=== PATIENT | male | born 1970 | race Caucasian/White ===

== ENCOUNTER 2018-01-21 09:59 | Emergency (ER) | payer OTHER ==
[~2018-01-21] VITALS: Ht 175.3 cm; Wt 130.0 kg
[~2018-01-21 09:59] MED LIST: AMLO-114 PO; ASPI81TA28 PO; ATOR-26 PO; BENA40TA6 PO; CLOP1TAB15 PO; FEXO1TAB46 PO; FLUT0.15 NAE; HYDR25TA4 PO; LORA-741 PO; NAPR1TAB48 PO; NITR0.4S UT; PANT40TA PO; PARO1TAB27 PO; TPRSR/25 PO
[2018-01-21 10:08] VITALS: TEMP 37.1; Ht 175.3 cm; Wt 130.0 kg
--- NOTE | 2018-01-21 10:43 | DIAGNOSTIC IMAGING REPORT ---
L FOOT MIN 3 VIEWS ROUTINE CLINICAL HISTORY: L foot pain TRAUMA COMPARISON: None. DISCUSSION: No acute fractures are visualized. There is Achilles insertional spur and plantar calcaneal spur. There is mild distal soft tissue swelling. There are minor osteoarthritic changes at the level the first metatarsal phalangeal joint. IMPRESSION: No fractures or dislocations. Electronically signed by: Zelalem Shah M.D. 01/21/2018 10:42 AM Dictated Date/Time: 01/21/2018 10:41 AM
--- NOTE | 2018-01-21 10:51 | DIAGNOSTIC IMAGING REPORT ---
L ANKLE MIN 3 VIEWS ROUTINE CLINICAL HISTORY: 47 years-old Male presenting with D06 - left ankle pain. TECHNIQUE: Frontal, mortise, and lateral views of the left ankle were obtained. COMPARISON: None. FINDINGS: Ankle mortise intact. No acute fracture or malalignment. No advanced degenerative change at the ankle mortise. Enthesophytes noted at the insertion of the Achilles tendon and origin of the plantar fascia. Diffuse soft tissue swelling and subcutaneous edema noted at the ankle. IMPRESSION: No acute osseous injury. Electronically signed by: Joey Rodriguez M.D. 01/21/2018 10:50 AM Dictated Date/Time: 01/21/2018 10:49 AM
--- NOTE | 2018-01-21 11:10 | EMERGENCY ROOM VISIT NOTE ---
History First contact with patient: 10:15 Chief Complaint: ANKLE PAIN Stated Complaint: ANKLE History of Present Illness The patient is a 47 year old male who presents to the Emergency Room via private vehicle with complaints of "ankle pain". The patient states that earlier today around 8 AM he was at work, and he actually tripped and fell injuring his left ankle. He notes pain at the medial aspect of the left distal foot extending to the medial left malleolus region as well as a left medial malleolus. Periodically pain will shoot proximally into the huitron. He rates the overall pain as an 8/10. Review of Systems A complete 6-point Review of Systems was discussed with the patient, with pertinent positives and negatives listed in the History of Present Illness. All remaining Review of Systems questions can be considered negative unless otherwise specified. Past Medical/Surgical History Medical Problems: (1) CAD (coronary artery disease) (2) Chest pain on exertion (3) HTN (hypertension) Surgical Problems: (1) H/O percutaneous transluminal coronary angioplasty (2) Stented coronary artery Family History Heart disease Hypertension Social History Smoking Status: Former Smoker Drug Use: none Marital Status: Housing Status: lives with significant other Occupation Status: employed Current/Historical Medications Scheduled Amlodipine (Norvasc), 10 MG PO QAM Aspirin (Aspirin Ec), 81 MG PO QAM Atorvastatin (Lipitor), 80 MG PO HS Benazepril Hcl (Lotensin), 40 MG PO QAM Clopidogrel (Plavix), 75 MG PO QAM Fluticasone Propionate (Nasal) (Flonase Allergy Relief), 2 SPRAY VIC DAILY Hydrochlorothiazide (Hctz), 25 MG PO QAM Metoprolol Succinate (Metoprolol Succinate ER), 25 MG PO QPM Paroxetine (Paxil), 20 MG PO QAM Scheduled PRN Fexofenadine Hcl (Cassidy), 180 MG PO DAILY PRN for Allergies Lorazepam (Ativan), 0.5 MG PO TID PRN for Anxiety Naproxen (Naprosyn), 250 MG PO Q8 PRN for Pain Nitroglycerin (Nitrostat), 0.4 MG UT UD PRN for Chest Pain Physical Exam Vital Signs Date Time Temp Pulse Resp B/P (MAP) Pulse Ox O2 Delivery O2 Flow Rate FiO2 01/21/18 11:09 64 16 167/107 96 Room Air 01/21/18 10:08 37.1 55 18 174/95 95 Room Air Physical Exam VITAL SIGNS - Vital signs and nursing notes were reviewed. Stable. GENERAL -47-year-old male appearing his Stated age who is in no acute distress. Communicates well with provider and answers questions appropriately. SKIN - Without rashes.there is erythema and edema overlying the medial as well as lateral malleolar regions of the left ankle. HEAD - NC/AT. EYES - Sclera anicteric. EXTREMITIES - No clubbing or peripheral cyanosis. No pretibial edema present. L ankle tenderness to palpation over the medial and lateral malleolus region and medial distal foot. No open fx evidence. +5/5 strength noted in UE/LE bilaterally. Neurovascularly intact in the L ankle. Medical Decision & Procedures ER Provider Diagnostic Interpretation: L ANKLE MIN 3 VIEWS ROUTINE CLINICAL HISTORY: 47 years-old Male presenting with D06 - left ankle pain. TECHNIQUE: Frontal, mortise, and lateral views of the left ankle were obtained. COMPARISON: None. FINDINGS: Ankle mortise intact. No acute fracture or malalignment. No advanced degenerative change at the ankle mortise. Enthesophytes noted at the insertion of the Achilles tendon and origin of the plantar fascia. Diffuse soft tissue swelling and subcutaneous edema noted at the ankle. IMPRESSION: No acute osseous injury. Electronically signed by: Joey Rodriguez M.D. 01/21/2018 10:50 AM Dictated Date/Time: 01/21/2018 10:49 AM L FOOT MIN 3 VIEWS ROUTINE CLINICAL HISTORY: L foot pain TRAUMA COMPARISON: None. DISCUSSION: No acute fractures are visualized. There is Achilles insertional spur and plantar calcaneal spur. There is mild distal soft tissue swelling. There are minor osteoarthritic changes at the level the first metatarsal phalangeal joint. IMPRESSION: No fractures or dislocations. Electronically signed by: Zelalem Shah M.D. 01/21/2018 10:42 AM Dictated Date/Time: 01/21/2018 10:41 AM Medical Decision Patient was seen and evaluated as above. He presents to us today from work with a left lower extremity injury. He is accompanied by female. Review was performed of nursing notes and vital signs. After obtaining a thorough history and physical examination the above work up was performed. X-rays were obtained of the foot and ankle. Negative for fracture. Results as above. He likely has a sprain. He was educated upon the risk of occult fracture. He is to ice, elevate as well as have a splint on the left ankle. He was given a gel ankle splint and is to be nonweightbearing with crutches. If this persists he is to follow with orthopedics or return with worsening. The patient was educated upon management, had questions answered prior to discharge, and was discharged home in good condition. He notes that he had ibuprofen prior to coming here with some relief and states that he will use similar at home for pain. I do believe this is reasonable. In the evaluation and treatment of this patient, the following differential diagnoses were considered: Ankle Fracture, Ankle Sprain, Distal Fibula Fracture , Distal Tibia Fracture, Foot Fracture, [place]ison[place]uve Fracture. Impression Primary Impression: Left ankle pain Departure Information Dispostion Home / Self-Care Condition GOOD Referrals Camille Sherwood C.R.N.P. (PCP) Chuck Holden D.O. Patient Instructions [facility] Additional Instructions You have been treated in the Emergency Department for a L Ankle Pain. For pain control, you can use the following [id number] medicines: - Regular strength (325mg/tab) Tylenol (acetaminophen) 2 tabs every 4-6 hours as needed. Do not exceed 12 tablets in a 24 hour period. Avoid taking more than 3 grams (3000 mg) of Tylenol per day. This includes any other sources of acetaminophen you may take on a regular basis. - Regular strength (200 mg/tab) Advil (ibuprofen) 1-2 tabs every 4-6 hours as needed. Do not exceed a dose of 3200 mg per day. If this is a recent injury (<24 hrs), ice can be applied to the area of pain for the first 3 days to help decrease pain and inflammation. You have been provided the number for an Orthopaedic Surgeon. You should call this number as soon as possible to establish a follow-up visit from today's Emergency Department visit. Keep the ankle brace/splint in place until cleared by Orthopedics. Use the crutches you have been provided to keep ALL weight off of the ankle until weight bearing is tolerable. Return to the Emergency Department if your current symptoms worsen despite treatment course outlined above, or if you develop any of the following symptoms : intractable pain despite aforementioned treatment course or new onset of numbness or tingling of the foot.
[2018-01-21 11:24] VITALS: BP 153/107; PULSE 65; O2SAT 96
== END 2018-01-21 11:26 | disposition home or self-care (01) ==
LOC: C.EDB 10:01 → C.EDD 11:26
DX: M25.572 Pain in left ankle and joints of left foot (principal); I25.10 Atherosclerotic heart disease of native coronary artery without angina pectoris; I10 Essential (primary) hypertension; Z82.49 Family history of ischemic heart disease and other diseases of the circulatory system; Z87.891 Personal history of nicotine dependence; Z79.82 Long term (current) use of aspirin

== ENCOUNTER 2024-01-16 07:04 | Inpatient (IN) ==
[2024-01-16] MEDS: OPTIRAY 320 125ml IV ONE (07:18)
--- NOTE | 2024-01-16 07:20 | Emergency Department Note ---
Impression & Plan AMS (altered mental status), Stroke-like symptoms, Sepsis, Rhabdomyolysis ED Provider Note Provider: Heriberto Cee MD DATE OF SERVICE: 01/16/2024 CHIEF COMPLAINT: Unresponsive HISTORY OF PRESENT ILLNESS: Patient is a 53-year-old gentleman past medical history of hypertension and CAD with stents presenting here via ambulance today after being found unresponsive on the floor by . Patient evidently according to EMS was last seen around 730 last night. woke and found him on the floor this morning. Would not talk and not really moving and EMS was called. Made a stroke alert prior to arrival. Patient does not follow commands and is nonverbal upon arrival. Eyes open bit of a right gaze preference. Occasionally moving right arm with no movement of left arm or leg appreciable or significantly in the right leg. Patient I will provide additional history. reports he did have some dental work recently and did hold his Plavix he is unsure if he is restarted it. He is normally on aspirin and Plavix. Recently treated and finished course of several antibiotics for sinus and dental infection. reports that maybe he reported headache earlier but no other verbal information. She states he found him some sort of rolled next to the couch is unclear if he fell or was trying off the couch and ended up there with his leg underneath of him. PAST MEDICAL HISTORY: As noted above MEDICATIONS: Reviewed home medications and discussion with SOCIAL HISTORY: , former smoker PHYSICAL EXAM: GENERAL: alert in no acute distress on stretcher but nonverbal Head: normocephalic and atraumatic EYES: No injection, discharge or icterus. PERRL with a right gaze deviation noted NECK: Trachea midline. Supple with no neck stiffness appreciable. ENT: Mucous membranes pink and moist LUNGS: Airway patent. No retractions. Breath sounds clear HEART: Regular rate and rhythm. No chest wall tenderness ABDOMEN: Soft and non-tender, without guarding or rebound. SKIN: Acyanotic, warm, dry, without rashes EXTREMITIES: Without swelling, tenderness or deformity NEUROLOGICAL: No obvious facial droop. Nonverbal. Some movement to the right arm and some tone to the right leg with flaccidity to the left leg and arm. EK bpm first-degree heart block without PVC CBC. Some slight baseline artifact without acute ST segment elevation notable with possibly some lateral T wave inversion and ST flattening. QTc 408. CONTINUOUS CARDIAC MONITORING: was ordered and showed a heart rate of 70s to 80s bpm in first-degree heart block later with PVCs EKG 2: 81 bpm sinus rhythm what appears to be bigeminy without clear acute ST segment elevation or depression on normal beats with a QTc of 490. Patient's laboratory studies and imaging reviewed. Differential includes Infection, dehydration, metabolic abnormality, hypo/hyperglycemia, electrolyte disturbance, anemia, hypoxia, cardiac sources, intracerebral event, toxicologic, neurologic, as well as other pathologies. IMPRESSION/MEDICAL DECISION MAKING: Immediately taken to CT for evaluation as a stroke alert given neurological deficits. Left side very flaccid without movement. Right gaze noted. Appears to be protecting his airway at this time. CT noncontrast as well as CT angiograms completed to look for signs of intracranial bleed or large vessel occlusion. High concern for possible CVA. Last seen well confirmed with at 730 last night thus outside the time window for TNK. Not hypoglycemic. Radiology report reviewed (as well as phone conversation with the reading radiologist) and no reported intracranial hemorrhage or findings of acute vascular abnormality noted by the radiologist. Blood work returns with significant leukocytosis today of 28.7. Much increased from previous value 10 days ago of 12. No anemia is noted. No fevers reported and afebrile here and recently on antibiotics but no steroids. Possibly infectious but does not appear frankly meningitic at this time. Will cover empirically with antibiotics at this point; discussed with pharmacy and will give broad-spectrum cefepime at this point believing low risk for cross-reactivity with his amoxicillin allergy. Updated and she states she is never seen any reaction with the amoxicillin with him before but he said he had a rash to her with it. Procalcitonin and lactate as well as blood cultures again will be sent. Given some gentle IV fluid hydration. Chest x-ray per radiology questions little pulmonary vascular congestion with bibasilar opacities possibly atelectasis or consolidation. Again receiving antibiotic coverage. Patient nonverbal does groan and expressed some discomfort with movement of the right arm with Villeda placement. Chemistries returned with borderline hyponatremia and hypokalemia. Anion gap notable with normal renal function. Troponin normal. No transaminitis. Rhabdomyolysis with elevated CK as noted again receiving some gentle IV fluids here. Lactate does return elevated but not tachycardic or hypotensive. Given the findings of the chest x-ray possible pulmonary vascular congestion wish to avoid large fluid boluses but given a liter of IV fluid hydration here initially. Urinalysis not clearly indicative of infection. Procalcitonin not severely elevated. Again cover broadly with cefepime for antibiotic coverage. Will bring into the hospital for further evaluation. Given some IV Tylenol for his fever. Discussed with the hospitalist team and will cover with vancomycin and Flagyl for any additional gram-positive and anaerobic coverage given the unclear source. Becomes increasingly hypertensive here and given some labetalol for this. Patient does seem somewhat anxious and agitated but try to avoid significantly sedating medications. Hospitalist evaluating and ordered ABG which does not show acidosis. During hospitalist evaluation patient mental status however continues to decline and becoming more encephalopathic and concerns for airway as he is now gargling having partial obstruction. Not desatting. Discussed with hospitalist as well as family. Intubated here for airway protection given concern for possible aspiration. Started on propofol drip for sedation. Intubation completed without acute complication. Difficulty obtaining blood pressures both before and after but manuals are quite high. Hospitalist is contacted the ICU. Plan for patient to obtain MRI and go to the ICU. ICU has been made aware by the hospitalist team. DIAGNOSIS: Strokelike symptoms, rhabdomyolysis, sepsis, hypertension, AMS DISPOSITION: Hospitalist will evaluate updated. Critical Care I have personally spent 75 minutes of critical care time in the direct management of this patient. This includes bedside care, interpretation of diagnostic studies, and testing, discussion with consultants, patient, and family members, and other required patient management activities. These 75 minutes is in excess of all separately billable procedures. ED Intubation Indication airway protection, encephalopathy The patient was on 100% oxygen prior to the procedure. Suction, airway equipment, RSI drugs, respiratory equipment, and appropriate personnel were prepared prior to the initiation of the procedure. A time out was taken. Induction was performed with 20 mg of etomidate and 150 mg of succinylcholine. After observing the clinical benefit of the medications, the airway was easily visualized utilizing a S3 glide scope. A 7.5 size ETT tube was placed atraumatically to 24 cm using standard technique. The cuff inflated without signs of malfunction. There were bilateral breath sounds, positive colormetric change, no gastric sounds, a good capnography waveform, and post procedure pulse oximetry was 97%. Post intubation sedation started with propofol drip. There were no complications. Past Med/Surg History Medical History Antibiotic-induced myalgia Cough Fever Morbid obesity CAD (coronary artery disease) Anxiety Hypertension Hyperlipidemia Anxiety reaction Surgical History History of tympanostomy tube placement (~04/2019) History of ankle surgery History of cardiac cath (~07/2016) History of esophagogastroduodenoscopy (EGD) (~08/2016) History of colonoscopy History of splenectomy (~1988) History of tooth extraction H/O percutaneous transluminal coronary angioplasty Family History Mother Family history of diabetes mellitus Brother Coronary heart disease Father Hx of CABG Unknown Cardiac disorder Other No family history of bleeding disorder Social History (Updated 01/01/24 @ 11:28 by JHONATHAN Chino) Smoking Status: Never smoker Second Hand Exposure: No; Do You Dip or Chew Tobacco: No; Hx Alcohol Use: No Hx Substance Use: No Preferred Language: Icelandic Communication Ability: Effective O And M Supervisor Required: No Beliefs That Will Affect Care: None Current Living Situation: Family current occupational status: employed Feels Safe at Home: Yes Assistive Devices: None Allergies Allergies Allergy/AdvReac Type Severity Reaction Status Date / Time amoxicillin Allergy Intermediate rash AND Verified 01/06/24 10:04 SOB doxycycline Allergy Unknown Unknown Verified 01/06/24 10:04 Home Meds Home Medications Medication Instructions Recorded Confirmed aspirin 81 mg tablet,delayed 81 mg PO QAM 04/06/19 01/16/24 release fexofenadine 180 mg tablet 180 mg PO QAM 04/06/19 01/16/24 amlodipine 10 mg tablet 10 mg PO QAM 01/16/24 01/16/24 benazepril 40 mg tablet 0 mg PO QAM 01/16/24 01/16/24 chlorhexidine gluconate 0.12 % 1 ea PO AMPM 01/16/24 01/16/24 mouthwash ibuprofen 800 mg tablet 800 mg PO Q6H 01/16/24 01/16/24 paroxetine HCl 40 mg tablet 0 mg PO QAM 01/16/24 01/16/24 rosuvastatin 40 mg tablet 0 mg PO DAILY 01/16/24 01/16/24 tramadol 50 mg tablet 50 - 100 mg PO Q6H PRN Pain 01/16/24 01/16/24 Previous Rx's Medication Instructions Recorded clopidogrel 75 mg tablet 75 mg PO DAILY #90 tabs 03/31/23 hydrochlorothiazide 25 mg tablet See Rx Instructions .Route 06/25/23 .COMPLEX #90 tabs nitroglycerin 0.4 mg sublingual 0.4 mg sublingual Q5M PRN Chest 08/19/23 tablet Pain #25 tabs fluticasone propionate 50 2 spray intranasal DAILY #9.9 grams 09/18/23 mcg/actuation nasal spray,suspension (Flonase Allergy Relief) bupropion HCl 150 mg 24 hr tablet, 150 mg PO QAM #90 tabs 11/17/23 extended release carvedilol 12.5 mg tablet 12.5 mg PO BID #180 tabs 01/06/24 Results & Data (ED) Vital Signs Vital Signs - 24 hr 01/16/24 07:16 01/16/24 07:38 01/16/24 07:40 Temperature Temperature Source Pulse Rate 78 83 84 Pulse Rate [Apical] Pulse Rate from SpO2 Sensor 83 83 Respiratory Rate 25 H 32 H 26 H Respiratory Effort / Characteristics Non-Labored Spontaneous Respiratory Depth Normal Blood Pressure 182/97 H Blood Pressure [Right Arm] Blood Pressure Mean 125 Blood Pressure Mean [Right Arm] Blood Pressure Position Lying Blood Pressure Position [Right Arm] Pulse Oximetry 97 98 97 Oxygen Delivery Method Room Air Sepsis Recent Fever Within 48 Hours No Sepsis New/Unexplained Change in Mental Status No Sepsis Action Taken by Nursing No Action Required 01/16/24 07:40 01/16/24 07:45 01/16/24 07:45 Temperature Temperature Source Pulse Rate 83 Pulse Rate [Apical] Pulse Rate from SpO2 Sensor 83 Respiratory Rate 25 H Respiratory Effort / Characteristics Respiratory Depth Blood Pressure 180/99 H 183/108 H Blood Pressure [Right Arm] Blood Pressure Mean 144 145 Blood Pressure Mean [Right Arm] Blood Pressure Position Blood Pressure Position [Right Arm] Pulse Oximetry 98 Oxygen Delivery Method Room Air Sepsis Recent Fever Within 48 Hours Sepsis New/Unexplained Change in Mental Status Sepsis Action Taken by Nursing 01/16/24 07:50 01/16/24 07:50 01/16/24 07:55 Temperature 36.7 C Temperature Source Pulse Rate 85 85 Pulse Rate [Apical] Pulse Rate from SpO2 Sensor 84 84 Respiratory Rate 27 H 29 H Respiratory Effort / Characteristics Respiratory Depth Blood Pressure 179/105 H Blood Pressure [Right Arm] Blood Pressure Mean 136 Blood Pressure Mean [Right Arm] Blood Pressure Position Blood Pressure Position [Right Arm] Pulse Oximetry 99 99 Oxygen Delivery Method Room Air Sepsis Recent Fever Within 48 Hours Sepsis New/Unexplained Change in Mental Status Sepsis Action Taken by Nursing 01/16/24 07:55 01/16/24 07:57 01/16/24 08:00 Temperature 37.2 C 37.4 C Temperature Source Villeda Cath ( Temp Sensing) Pulse Rate 83 Pulse Rate [Apical] Pulse Rate from SpO2 Sensor 83 Respiratory Rate 29 H Respiratory Effort / Characteristics Respiratory Depth Blood Pressure 182/105 H Blood Pressure [Right Arm] Blood Pressure Mean 127 Blood Pressure Mean [Right Arm] Blood Pressure Position Blood Pressure Position [Right Arm] Pulse Oximetry 97 Oxygen Delivery Method Sepsis Recent Fever Within 48 Hours Sepsis New/Unexplained Change in Mental Status Sepsis Action Taken by Nursing 01/16/24 08:10 01/16/24 08:15 01/16/24 08:19 Temperature 37.9 C H 37.9 C H Temperature Source Pulse Rate 80 88 82 Pulse Rate [Apical] Pulse Rate from SpO2 Sensor 80 81 Respiratory Rate 29 H 29 H Respiratory Effort / Characteristics Respiratory Depth Blood Pressure Blood Pressure [Right Arm] Blood Pressure Mean Blood Pressure Mean [Right Arm] Blood Pressure Position Blood Pressure Position [Right Arm] Pulse Oximetry 99 100 Oxygen Delivery Method Room Air Sepsis Recent Fever Within 48 Hours Sepsis New/Unexplained Change in Mental Status Sepsis Action Taken by Nursing 01/16/24 08:22 01/16/24 08:22 01/16/24 08:30 Temperature 37.9 C H 38.0 C H Temperature Source Pulse Rate 77 81 Pulse Rate [Apical] Pulse Rate from SpO2 Sensor 77 80 Respiratory Rate 25 H 36 H Respiratory Effort / Characteristics Respiratory Depth Blood Pressure 268/120 H Blood Pressure [Right Arm] Blood Pressure Mean 190 Blood Pressure Mean [Right Arm] Blood Pressure Position Blood Pressure Position [Right Arm] Pulse Oximetry 98 99 Oxygen Delivery Method Sepsis Recent Fever Within 48 Hours Sepsis New/Unexplained Change in Mental Status Sepsis Action Taken by Nursing 01/16/24 08:45 01/16/24 08:48 01/16/24 08:57 Temperature 38.0 C H 38.1 C H Temperature Source Pulse Rate 88 90 Pulse Rate [Apical] Pulse Rate from SpO2 Sensor Respiratory Rate 29 H 34 H Respiratory Effort / Characteristics Respiratory Depth Blood Pressure Blood Pressure [Right Arm] Blood Pressure Mean Blood Pressure Mean [Right Arm] Blood Pressure Position Blood Pressure Position [Right Arm] Pulse Oximetry 98 97 99 Oxygen Delivery Method Room Air Sepsis Recent Fever Within 48 Hours Sepsis New/Unexplained Change in Mental Status Sepsis Action Taken by Nursing 01/16/24 08:57 01/16/24 09:00 01/16/24 09:06 Temperature 38.1 C H Temperature Source Pulse Rate 83 90 Pulse Rate [Apical] Pulse Rate from SpO2 Sensor Respiratory Rate 14 Respiratory Effort / Characteristics Respiratory Depth Blood Pressure 234/140 H Blood Pressure [Right Arm] Blood Pressure Mean 183 Blood Pressure Mean [Right Arm] Blood Pressure Position Blood Pressure Position [Right Arm] Pulse Oximetry 98 Oxygen Delivery Method Sepsis Recent Fever Within 48 Hours Sepsis New/Unexplained Change in Mental Status Sepsis Action Taken by Nursing 01/16/24 09:15 01/16/24 09:30 01/16/24 09:32 Temperature 38.1 C H 38.1 C H Temperature Source Pulse Rate 71 73 Pulse Rate [Apical] 76 Pulse Rate from SpO2 Sensor 74 Respiratory Rate 15 17 16 Respiratory Effort / Characteristics Non-Labored Spontaneous Respiratory Depth Normal Blood Pressure Blood Pressure [Right Arm] 212/130 H Blood Pressure Mean Blood Pressure Mean [Right Arm] 157 Blood Pressure Position Blood Pressure Position [Right Arm] Lying Pulse Oximetry 100 99 99 Oxygen Delivery Method Room Air Sepsis Recent Fever Within 48 Hours Sepsis New/Unexplained Change in Mental Status Sepsis Action Taken by Nursing 01/16/24 09:45 01/16/24 09:49 01/16/24 10:00 Temperature 37.8 C H Temperature Source Pulse Rate 86 Pulse Rate [Apical] 82 Pulse Rate from SpO2 Sensor 86 Respiratory Rate 15 15 Respiratory Effort / Characteristics Non-Labored Spontaneous Respiratory Depth Normal Blood Pressure Blood Pressure [Right Arm] 212/132 H 212/126 H Blood Pressure Mean Blood Pressure Mean [Right Arm] 158 154 Blood Pressure Position Blood Pressure Position [Right Arm] Lying Lying Pulse Oximetry 99 99 Oxygen Delivery Method Room Air Sepsis Recent Fever Within 48 Hours Sepsis New/Unexplained Change in Mental Status Sepsis Action Taken by Nursing 01/16/24 10:00 Temperature 37.7 C H Temperature Source Pulse Rate 93 H Pulse Rate [Apical] Pulse Rate from SpO2 Sensor 61 Respiratory Rate 16 Respiratory Effort / Characteristics Respiratory Depth Blood Pressure Blood Pressure [Right Arm] Blood Pressure Mean Blood Pressure Mean [Right Arm] Blood Pressure Position Blood Pressure Position [Right Arm] Pulse Oximetry 99 Oxygen Delivery Method Room Air Sepsis Recent Fever Within 48 Hours Sepsis New/Unexplained Change in Mental Status Sepsis Action Taken by Nursing Laboratory Data 01/16/24 07:28 01/16/24 07:28 Lab Results 01/16/24 01/16/24 01/16/24 Range/Units 07:18 07:28 07:29 WBC 28.73 H (4.8-10.8) K/ul RBC 4.85 (4.70-6.10) M/uL Hgb 14.5 (14.0-18.0) g/dl Hct 41.5 L (42.0-52.0) % MCV 85.6 (80.0-100.0) fL MCH 29.9 (25.0-34.0) pg MCHC 34.9 (32.0-36.0) g/dL RDW Std Deviation 44.7 (36.4-46.3) fL RDW Coeff of Rolo 14.3 (11.5-14.5) % Plt Count 436 H (130-400) K/uL MPV 11.0 (9.4-12.4) fL Immature Gran % (Auto) 1.3 % Neut % (Auto) 91.9 % Lymph % (Auto) 2.1 % Webster % (Auto) 4.3 % Eos % (Auto) 0.2 % Baso % (Auto) 0.2 % Neut # (Auto) 26.43 H (1.40-6.50) K/uL Lymph # (Auto) 0.60 L (1.20-3.40) K/uL Webster # (Auto) 1.23 H (0.11-0.59) K/uL Eos # (Auto) 0.05 (0.00-0.50) K/uL Baso # (Auto) 0.05 (0.00-0.20) K/uL Immature Gran # (Auto) 0.37 H (0.01-0.20) K/uL RBC Morphology Unremarkable ESR 35 H (0-20) mm/hr PT 12.7 H (9.0-12.0) Seconds INR 1.2 H (0.9-1.1) APTT 25 (21-31) Seconds PTT Ratio 0.9 ABG pH (7.35-7.45) ABG pCO2 (35-46) mmHg ABG pO2 (80-95) mmHg ABG HCO3 (19-24) mmol/L ABG O2 Saturation (90-95) % ABG Base Excess (-9-1.8) mEq/L Hugo Test (Pos) Oxygen Given Sodium 134 L (136-145) mmol/L Potassium 3.4 L (3.5-5.1) mmol/L Chloride 99 (98-107) mmol/L Carbon Dioxide 18 L (21-32) mmol/L Anion Gap 17 H (3-11) BUN 29 H (6-23) mg/dl Creatinine 0.88 (0.6-1.4) mg/dl Est Cr Clr Drug Dosing 144.0 ml/min Est GFR ( Amer) 112.9 ml/min Est GFR (Non-Af Amer) 97.4 ml/min BUN/Creatinine Ratio 33.0 H (10-20) Glucose 221 H (70-99(Fasting)) mg/dl POC Glucose 227 H (70-99) mg/dl Lactate (0.4-2.0) mmol/L Calcium 8.3 L (8.6-10.3) mg/dl Magnesium 1.6 L (1.7-2.4) mg/dl Total Bilirubin 1.0 (0.2-1.0) mg/dl AST 29 (13-39) U/L ALT 31 (7-52) U/L Alkaline Phosphatase 69 (34-104) U/L Total Creatine Kinase 1556 H (30-223) U/L Troponin I High Sens 4.9 (0-20) pg/ml Total Protein 7.5 (6.0-8.3) gm/dl Albumin 3.6 (3.4-5.0) gm/dl Globulin 3.9 (2.5-4.0) gm/dl Albumin/Globulin Ratio 0.9 (0.9-2) Procalcitonin 0.20 (0-0.5) ng/ml Urine Color Urine Appearance (Clear) Urine pH (4.5-7.5) Ur Specific [place] (1.000-1.030) Urine Protein (Negative) Urine Glucose (UA) (Negative) Urine Ketones (Negative) Urine Blood (Negative) Urine Nitrite (Negative) Urine Bilirubin (Negative) Urine Urobilinogen (Negative) Ur Leukocyte Esterase (Negative) Urine WBC (Auto) (0-5) /hpf Urine RBC (Auto) (0-4) /hpf U Hyaline Cast (Auto) (0-5) /lpf U Epithel Cells (Auto) (0-5) /lpf Urine Bacteria (Auto) (Negative) Ur Renal Epithelial Cell Urine Mucus (None Prsent) Urine Sperm (None Prsent) Urine Osmolality (500-800) mOsm/kg Nasal Screen MRSA (PCR) (Negative) Urine Opiates Screen (Neg) Ur Methadone, Qual (Neg) Urine Barbiturates (Neg) Ur Phencyclidine (PCP) (Neg) U Amphetamin/Meth Scrn (Neg) MDMA (Ecstasy) Screen (Neg) U Benzodiazepines Scrn (Neg) Ur Cocaine Metabolite (Neg) U Marijuana (THC) Screen (Neg) Adenovirus (PCR) (NotDetected) B. pertussis DNA (PCR) (NotDetected) B.parapertussis DNA PCR (NotDetected) C. pneumoniae DNA (PCR) (NotDetected) Coronavirus OC43 (PCR) (NotDetected) Coronavirus HKU1 (PCR) (NotDetected) Coronavirus 229E (PCR) (NotDetected) SARS-CoV-2 (PCR) (NotDetected) Coronavirus NL63 (PCR) (NotDetected) Human Metapneumovir PCR (NotDetected) Influenza Type A (PCR) (NotDetected) Influenza Type B (PCR) (NotDetected) M. pneumoniae (PCR) (NotDetected) Parainfluenza 1 (PCR) (NotDetected) Parainfluenza 2 (PCR) (NotDetected) Parainfluenza 3 (PCR) (NotDetected) Parainfluenza 4 (PCR) (NotDetected) RSV (PCR) (NotDetected) Entero/Rhino (PCR) (NotDetected) Blood Type AB Positive Antibody Screen NEGATIVE 01/16/24 01/16/24 01/16/24 Range/Units 07:59 08:26 09:27 WBC (4.8-10.8) K/ul RBC (4.70-6.10) M/uL Hgb (14.0-18.0) g/dl Hct (42.0-52.0) % MCV (80.0-100.0) fL MCH (25.0-34.0) pg MCHC (32.0-36.0) g/dL RDW Std Deviation (36.4-46.3) fL RDW Coeff of Rolo (11.5-14.5) % Plt Count (130-400) K/uL MPV (9.4-12.4) fL Immature Gran % (Auto) % Neut % (Auto) % Lymph % (Auto) % Webster % (Auto) % Eos % (Auto) % Baso % (Auto) % Neut # (Auto) (1.40-6.50) K/uL Lymph # (Auto) (1.20-3.40) K/uL Webster # (Auto) (0.11-0.59) K/uL Eos # (Auto) (0.00-0.50) K/uL Baso # (Auto) (0.00-0.20) K/uL Immature Gran # (Auto) (0.01-0.20) K/uL RBC Morphology ESR (0-20) mm/hr PT (9.0-12.0) Seconds INR (0.9-1.1) APTT (21-31) Seconds PTT Ratio ABG pH (7.35-7.45) ABG pCO2 (35-46) mmHg ABG pO2 (80-95) mmHg ABG HCO3 (19-24) mmol/L ABG O2 Saturation (90-95) % ABG Base Excess (-9-1.8) mEq/L Hugo Test (Pos) Oxygen Given Sodium (136-145) mmol/L Potassium (3.5-5.1) mmol/L Chloride (98-107) mmol/L Carbon Dioxide (21-32) mmol/L Anion Gap (3-11) BUN (6-23) mg/dl Creatinine (0.6-1.4) mg/dl Est Cr Clr Drug Dosing ml/min Est GFR ( Amer) ml/min Est GFR (Non-Af Amer) ml/min BUN/Creatinine Ratio (10-20) Glucose (70-99(Fasting)) mg/dl POC Glucose (70-99) mg/dl Lactate 5.3 H* (0.4-2.0) mmol/L Calcium (8.6-10.3) mg/dl Magnesium (1.7-2.4) mg/dl Total Bilirubin (0.2-1.0) mg/dl AST (13-39) U/L ALT (7-52) U/L Alkaline Phosphatase (34-104) U/L Total Creatine Kinase (30-223) U/L Troponin I High Sens (0-20) pg/ml Total Protein (6.0-8.3) gm/dl Albumin (3.4-5.0) gm/dl Globulin (2.5-4.0) gm/dl Albumin/Globulin Ratio (0.9-2) Procalcitonin (0-0.5) ng/ml Urine Color Yellow Urine Appearance Clear (Clear) Urine pH 6.0 (4.5-7.5) Ur Specific [place] 1.033 H (1.000-1.030) Urine Protein 1+ H (Negative) Urine Glucose (UA) Negative (Negative) Urine Ketones 2+ H (Negative) Urine Blood 3+ H (Negative) Urine Nitrite Negative (Negative) Urine Bilirubin Negative (Negative) Urine Urobilinogen Negative (Negative) Ur Leukocyte Esterase Negative (Negative) Urine WBC (Auto) 1-5 (0-5) /hpf Urine RBC (Auto) 5-10 H (0-4) /hpf U Hyaline Cast (Auto) 1-5 (0-5) /lpf U Epithel Cells (Auto) 5-10 H (0-5) /lpf Urine Bacteria (Auto) 1+ H (Negative) Ur Renal Epithelial Cell Not Reportable Urine Mucus Present A (None Prsent) Urine Sperm Present A (None Prsent) Urine Osmolality 831 H (500-800) mOsm/kg Nasal Screen MRSA (PCR) Negative (Negative) Urine Opiates Screen Neg (Neg) Ur Methadone, Qual Neg (Neg) Urine Barbiturates Neg (Neg) Ur Phencyclidine (PCP) Neg (Neg) U Amphetamin/Meth Scrn Neg (Neg) MDMA (Ecstasy) Screen Pos H (Neg) U Benzodiazepines Scrn Neg (Neg) Ur Cocaine Metabolite Neg (Neg) U Marijuana (THC) Screen Neg (Neg) Adenovirus (PCR) Not Detected (NotDetected) B. pertussis DNA (PCR) Not Detected (NotDetected) B.parapertussis DNA PCR Not Detected (NotDetected) C. pneumoniae DNA (PCR) Not Detected (NotDetected) Coronavirus OC43 (PCR) Not Detected (NotDetected) Coronavirus HKU1 (PCR) Not Detected (NotDetected) Coronavirus 229E (PCR) Not Detected (NotDetected) SARS-CoV-2 (PCR) Not Detected (NotDetected) Coronavirus NL63 (PCR) Not Detected (NotDetected) Human Metapneumovir PCR Not Detected (NotDetected) Influenza Type A (PCR) Not Detected (NotDetected) Influenza Type B (PCR) Not Detected (NotDetected) M. pneumoniae (PCR) Not Detected (NotDetected) Parainfluenza 1 (PCR) Not Detected (NotDetected) Parainfluenza 2 (PCR) Not Detected (NotDetected) Parainfluenza 3 (PCR) Not Detected (NotDetected) Parainfluenza 4 (PCR) Not Detected (NotDetected) RSV (PCR) Not Detected (NotDetected) Entero/Rhino (PCR) Not Detected (NotDetected) Blood Type Antibody Screen 01/16/24 Range/Units 09:28 WBC (4.8-10.8) K/ul RBC (4.70-6.10) M/uL Hgb (14.0-18.0) g/dl Hct (42.0-52.0) % MCV (80.0-100.0) fL MCH (25.0-34.0) pg MCHC (32.0-36.0) g/dL RDW Std Deviation (36.4-46.3) fL RDW Coeff of Rolo (11.5-14.5) % Plt Count (130-400) K/uL MPV (9.4-12.4) fL Immature Gran % (Auto) % Neut % (Auto) % Lymph % (Auto) % Webster % (Auto) % Eos % (Auto) % Baso % (Auto) % Neut # (Auto) (1.40-6.50) K/uL Lymph # (Auto) (1.20-3.40) K/uL Webster # (Auto) (0.11-0.59) K/uL Eos # (Auto) (0.00-0.50) K/uL Baso # (Auto) (0.00-0.20) K/uL Immature Gran # (Auto) (0.01-0.20) K/uL RBC Morphology ESR (0-20) mm/hr PT (9.0-12.0) Seconds INR (0.9-1.1) APTT (21-31) Seconds PTT Ratio ABG pH 7.54 H* (7.35-7.45) ABG pCO2 20 L (35-46) mmHg ABG pO2 103 H (80-95) mmHg ABG HCO3 17 L (19-24) mmol/L ABG O2 Saturation 99.0 H (90-95) % ABG Base Excess -3.2 (-9-1.8) mEq/L Hugo Test Pos (Pos) Oxygen Given ROOM AIR Sodium (136-145) mmol/L Potassium (3.5-5.1) mmol/L Chloride (98-107) mmol/L Carbon Dioxide (21-32) mmol/L Anion Gap (3-11) BUN (6-23) mg/dl Creatinine (0.6-1.4) mg/dl Est Cr Clr Drug Dosing ml/min Est GFR ( Amer) ml/min Est GFR (Non-Af Amer) ml/min BUN/Creatinine Ratio (10-20) Glucose (70-99(Fasting)) mg/dl POC Glucose (70-99) mg/dl Lactate (0.4-2.0) mmol/L Calcium (8.6-10.3) mg/dl Magnesium (1.7-2.4) mg/dl Total Bilirubin (0.2-1.0) mg/dl AST (13-39) U/L ALT (7-52) U/L Alkaline Phosphatase (34-104) U/L Total Creatine Kinase (30-223) U/L Troponin I High Sens (0-20) pg/ml Total Protein (6.0-8.3) gm/dl Albumin (3.4-5.0) gm/dl Globulin (2.5-4.0) gm/dl Albumin/Globulin Ratio (0.9-2) Procalcitonin (0-0.5) ng/ml Urine Color Urine Appearance (Clear) Urine pH (4.5-7.5) Ur Specific [place] (1.000-1.030) Urine Protein (Negative) Urine Glucose (UA) (Negative) Urine Ketones (Negative) Urine Blood (Negative) Urine Nitrite (Negative) Urine Bilirubin (Negative) Urine Urobilinogen (Negative) Ur Leukocyte Esterase (Negative) Urine WBC (Auto) (0-5) /hpf Urine RBC (Auto) (0-4) /hpf U Hyaline Cast (Auto) (0-5) /lpf U Epithel Cells (Auto) (0-5) /lpf Urine Bacteria (Auto) (Negative) Ur Renal Epithelial Cell Urine Mucus (None Prsent) Urine Sperm (None Prsent) Urine Osmolality (500-800) mOsm/kg Nasal Screen MRSA (PCR) (Negative) Urine Opiates Screen (Neg) Ur Methadone, Qual (Neg) Urine Barbiturates (Neg) Ur Phencyclidine (PCP) (Neg) U Amphetamin/Meth Scrn (Neg) MDMA (Ecstasy) Screen (Neg) U Benzodiazepines Scrn (Neg) Ur Cocaine Metabolite (Neg) U Marijuana (THC) Screen (Neg) Adenovirus (PCR) (NotDetected) B. pertussis DNA (PCR) (NotDetected) B.parapertussis DNA PCR (NotDetected) C. pneumoniae DNA (PCR) (NotDetected) Coronavirus OC43 (PCR) (NotDetected) Coronavirus HKU1 (PCR) (NotDetected) Coronavirus 229E (PCR) (NotDetected) SARS-CoV-2 (PCR) (NotDetected) Coronavirus NL63 (PCR) (NotDetected) Human Metapneumovir PCR (NotDetected) Influenza Type A (PCR) (NotDetected) Influenza Type B (PCR) (NotDetected) M. pneumoniae (PCR) (NotDetected) Parainfluenza 1 (PCR) (NotDetected) Parainfluenza 2 (PCR) (NotDetected) Parainfluenza 3 (PCR) (NotDetected) Parainfluenza 4 (PCR) (NotDetected) RSV (PCR) (NotDetected) Entero/Rhino (PCR) (NotDetected) Blood Type Antibody Screen Administered Medications Meropenem 2,000 mg/ Sodium (Chloride) 100 mls @ 200 mls/hr IV Q8H [facility]; Protocol Stop: 01/26/24 09:59 Last Admin: 01/16/24 12:57 Dose: 200 mls/hr Documented By: DMB Propofol (Diprivan) 1,000 mg in 100 mls @ 17.448 mls/hr IV .Q5H44M [facility]; Protocol Stop: 01/19/24 10:14 Last Admin: 01/16/24 10:16 Dose: 20 mcg/kg/min, 17.4 mls/hr Documented By: CC Co-signed By: ML Norepinephrine Bitartrate (Levophed/D5w) 4 mg in 250 mls @ 27.263 mls/hr IV .Q9H11M [facility]; Protocol Stop: 02/15/24 12:29 Last Admin: 01/16/24 12:59 Dose: Not Given Documented By: DMB Propofol (Propofol Bolus From Bag) 20 mg IV Q5M PRN PRN Reason: Sedation Stop: 01/19/24 10:14 Last Admin: 01/16/24 10:45 Dose: 20 mg Documented By: ML Co-signed By: CC Discontinued Medications Aspirin (Aspirin 300 Mg Supp) 300 mg NE ONE ONE Stop: 01/16/24 08:59 Last Admin: 01/16/24 10:52 Dose: 300 mg Documented By: CC Gadobutrol (Gadobutrol 30ml Vial) 14.5 ml IV ONCE ONE Stop: 01/16/24 12:06 Last Admin: 01/16/24 12:13 Dose: 14.5 ml Documented By: KAROLYN Sodium Chloride (Nss) 1,000 mls @ 999 mls/hr IV .Q1H1M ONE Stop: 01/16/24 09:01 Last Infusion: 01/16/24 10:20 Dose: Infused Documented By: Admin: 01/16/24 08:45 Dose: 999 mls/hr Documented By: CC Cefepime HCl (Maxipime) 2,000 mg in 20 mls @ 5 mls/min IV NOW [facility] [place]; Protocol Stop: 01/16/24 08:19 Last Admin: 01/16/24 08:45 Dose: 5 mls/min Documented By: CC Acetaminophen (Ofirmev) 1,000 mg in 100 mls @ 400 mls/hr IV NOW STA Stop: 01/16/24 08:59 Last Infusion: 01/16/24 09:14 Dose: Infused Documented By: Admin: 01/16/24 08:51 Dose: 400 mls/hr Documented By: CC Vancomycin HCl 2,750 mg/ (Sodium Chloride) 555 mls @ 200 mls/hr IV NOW ONE Stop: 01/16/24 11:42 Last Admin: 01/16/24 09:34 Dose: 200 mls/hr Documented By: CC Metronidazole (Flagyl) 500 mg in 100 mls @ 100 mls/hr IV NOW STA; Protocol Stop: 01/16/24 09:56 Last Infusion: 01/16/24 10:19 Dose: Infused Documented By: Admin: 01/16/24 09:04 Dose: 100 mls/hr Documented By: CC Lactated Ringer's (Lr) 1,000 mls @ 999 mls/hr IV .Q1H1M ONE Stop: 01/16/24 10:00 Last Admin: 01/16/24 09:33 Dose: 999 mls/hr Documented By: CC Acyclovir Sodium 1,060 mg/ (Dextrose) 271.2 mls @ 250 mls/hr IV NOW STA Stop: 01/16/24 11:07 Last Admin: 01/16/24 12:58 Dose: 250 mls/hr Documented By: RITO Ioversol (Optiray 320 125ml) 115 ml IV ONCE ONE Stop: 01/16/24 07:19 Last Admin: 01/16/24 07:18 Dose: 115 ml Documented By: JENNA Labetalol HCl (Labetalol Hcl Iv 5 Mg/Ml 20ml) 10 mg IV NOW STA Stop: 01/16/24 09:00 Last Admin: 01/16/24 09:06 Dose: 10 mg Documented By: ANNETTE Co-signed By: AVINASH Labetalol HCl (Labetalol Hcl Iv 5 Mg/Ml 20ml) 10 mg IV NOW STA Stop: 01/16/24 10:11 Last Admin: 01/16/24 11:51 Dose: Not Given Documented By: ANNETTE Miscellaneous (Rapid Sequence Induction Bag) Confirm Administered Dose 1 each N/A .STK-MED ONE Stop: 01/16/24 10:01 Last Admin: 01/16/24 13:00 Dose: Not Given Documented By: RITO Miscellaneous (Stat Iv Infusion Titration Per Protocol) 1 each N/A NOW STA Stop: 01/16/24 10:16 Last Admin: 01/16/24 12:58 Dose: 1 each Documented By: RITO Norepinephrine Bitartrate (Norepinephrine/D5w 4 Mg/250 Ml) Confirm Administered Dose 4 mg IV .STK-MED ONE Stop: 01/16/24 12:22 Last Admin: 01/16/24 12:58 Dose: 4 mg Documented By: RITO Propofol (Propofol Iv Emulsion 10 Mg/Ml 100 Ml Vial) Confirm Administered Dose 1,000 mg IV .STK-MED ONE Stop: 01/16/24 10:13 Last Admin: 01/16/24 10:34 Dose: Not Given Documented By: LEIGH Imaging Data Radiologist's Impression: Head CT 01/16/24 07:03 CR Exam(s): CT HEAD Without Contrast EXAM: CT Head Without Intravenous Contrast CLINICAL HISTORY: Reason for exam: neuro deficit, acute stroke suspected. TECHNIQUE: Axial computed tomography images of the head/brain without intravenous contrast. CTDI is 53.34 mGy and DLP is 1498.69 mGy-cm. Automated exposure control was utilized for the study. A dose lowering technique was utilized adhering to the principles of ALARA. COMPARISON: No relevant prior studies available. FINDINGS: Brain: Unremarkable. No hemorrhage. No significant white matter disease. No edema. Ventricles: Unremarkable. No ventriculomegaly. Bones/joints: Unremarkable. No acute fracture. Soft tissues: Unremarkable. Sinuses: Unremarkable as visualized. No acute sinusitis. Mastoid air cells: Unremarkable as visualized. No mastoid effusion. IMPRESSION: No acute intracranial abnormality Communications: Call Doctor Stroke Electronically signed by: Hector Morton MD 01/16/24 07:41 AM Head CTA 01/16/24 07:03 CR Exam(s): CTA HEAD With Contrast IV Amt: 115 mls optiray 320 EXAM: CT Angiography Head With Intravenous Contrast CLINICAL HISTORY: Reason for exam: neuro deficit, acute stroke suspected. TECHNIQUE: Axial computed tomographic angiography images of the head with intravenous contrast. CTDI is 53.34 mGy and DLP is 1498.69 mGy-cm. Automated exposure control was utilized for the study. A dose lowering technique was utilized adhering to the principles of ALARA. MIP reconstructed images were created and reviewed. CONTRAST: Patient received 115 mls optiray 320 of IV contrast COMPARISON: No relevant prior studies available. FINDINGS: Right internal carotid artery: No acute findings. Intracranial segment is patent with no significant stenosis. No aneurysm. Right anterior cerebral artery: Unremarkable. No occlusion or significant stenosis. No aneurysm. Right middle cerebral artery: Unremarkable. No occlusion or significant stenosis. No aneurysm. Right posterior cerebral artery: Unremarkable. No occlusion or significant stenosis. No aneurysm. Right vertebral artery: Unremarkable as visualized. Left internal carotid artery: No acute findings. Intracranial segment is patent with no significant stenosis. No aneurysm. Left anterior cerebral artery: Unremarkable. No occlusion or significant stenosis. No aneurysm. Left middle cerebral artery: Unremarkable. No occlusion or significant stenosis. No aneurysm. Left posterior cerebral artery: Unremarkable. No occlusion or significant stenosis. No aneurysm. Left vertebral artery: Unremarkable as visualized. Basilar artery: Unremarkable. No occlusion or significant stenosis. No aneurysm. IMPRESSION: Normal head CTA. Communications: Call Doctor Stroke Electronically signed by: Hector Morton MD 01/16/24 07:43 AM Neck CTA 01/16/24 07:03 CR Exam(s): CTA NECK With Contrast IV Amt: 115 mls optiray 320 EXAM: CT Angiography Neck With Intravenous Contrast CLINICAL HISTORY: Reason for exam: neuro deficit, acute stroke suspected. TECHNIQUE: Routine carotid CT angiography protocol was performed with intravenous contrast. NASCET criteria using the distal ICAs for comparison were used for evaluation of stenoses. CTDI is 53.34 mGy and DLP is 1498.69 mGy-cm. Automated exposure control was utilized for the study. A dose lowering technique was utilized adhering to the principles of ALARA. MIP reconstructed images were created and reviewed. CONTRAST: Patient received 115 mls optiray 320 of IV contrast COMPARISON: None. FINDINGS: VASCULATURE: Right common carotid artery: Unremarkable. No occlusion or significant stenosis. No dissection. Right internal carotid artery: Unremarkable. Extracranial segment is patent with no occlusion or significant stenosis. No dissection. Right external carotid artery: Unremarkable. No occlusion. Right vertebral artery: Unremarkable. No occlusion or significant stenosis. No dissection. Left common carotid artery: Unremarkable. No occlusion or significant stenosis. No dissection. Left internal carotid artery: Unremarkable. Extracranial segment is patent with no occlusion or significant stenosis. No dissection. Left external carotid artery: Unremarkable. No occlusion. Left vertebral artery: Unremarkable. No occlusion or significant stenosis. No dissection. NECK: Bones/joints: Unremarkable. No acute fracture. Soft tissues: Unremarkable. Lung apices: Clear. CAROTID STENOSIS REFERENCE USING NASCET CRITERIA: % ICA stenosis = (1 - narrowest ICA diameter/diameter of distal cervical ICA) x 100. Mild - <50% stenosis. Moderate - 50-69% stenosis. Severe - 70-94% stenosis. Near occlusion - 95-99% stenosis. Occluded - 100% stenosis. IMPRESSION: Negative CTA neck. Communications: Call Doctor Stroke Electronically signed by: Hector Morton MD 01/16/24 07:44 AM Chest X-Ray 01/16/24 07:59 XR chest 1V portable CLINICAL HISTORY: Altered mental status. COMPARISON STUDY: Chest CT July 12, 2016. Chest radiograph July 15, 2016. FINDINGS: Lung volumes are mildly diminished. This is unchanged. There is no pneumothorax or pleural effusion. Stable cardiomegaly. There is pulmonary vascular congestion without overt pulmonary edema. There are bibasilar opacities, greater on the left. IMPRESSION: 1. Cardiomegaly with pulmonary vascular congestion. 2. Bibasilar opacities, greater on the left. The findings could reflect atelectasis or consolidation. ACT 112: Negative or not required by law. Electronically signed by: Zach Moy M.D. 01/16/2024 8:14 AM Discharge Plan Visit Data Chief Complaint: Stroke Alert Stated Complaint: stroke alert ED Provider: Heriberto Cee Discharge Problem: AMS (altered mental status), Stroke-like symptoms, Sepsis, Rhabdomyolysis Patient Disposition: Being Evaluated by Hospitalist
--- NOTE | 2024-01-16 07:42 | CT Scan Report ---
Exam(s): CT HEAD Without Contrast EXAM: CT Head Without Intravenous Contrast CLINICAL HISTORY: Reason for exam: neuro deficit, acute stroke suspected. TECHNIQUE: Axial computed tomography images of the head/brain without intravenous contrast. CTDI is 53.34 mGy and DLP is 1498.69 mGy-cm. Automated exposure control was utilized for the study. A dose lowering technique was utilized adhering to the principles of ALARA. COMPARISON: No relevant prior studies available. FINDINGS: Brain: Unremarkable. No hemorrhage. No significant white matter disease. No edema. Ventricles: Unremarkable. No ventriculomegaly. Bones/joints: Unremarkable. No acute fracture. Soft tissues: Unremarkable. Sinuses: Unremarkable as visualized. No acute sinusitis. Mastoid air cells: Unremarkable as visualized. No mastoid effusion. IMPRESSION: No acute intracranial abnormality Communications: Call Doctor Stroke Electronically signed by: Hector Morton MD 01/16/24 07:41 AM
--- NOTE | 2024-01-16 07:44 | CT Scan Report ---
Exam(s): CTA HEAD With Contrast IV Amt: 115 mls optiray 320 EXAM: CT Angiography Head With Intravenous Contrast CLINICAL HISTORY: Reason for exam: neuro deficit, acute stroke suspected. TECHNIQUE: Axial computed tomographic angiography images of the head with intravenous contrast. CTDI is 53.34 mGy and DLP is 1498.69 mGy-cm. Automated exposure control was utilized for the study. A dose lowering technique was utilized adhering to the principles of ALARA. MIP reconstructed images were created and reviewed. CONTRAST: Patient received 115 mls optiray 320 of IV contrast COMPARISON: No relevant prior studies available. FINDINGS: Right internal carotid artery: No acute findings. Intracranial segment is patent with no significant stenosis. No aneurysm. Right anterior cerebral artery: Unremarkable. No occlusion or significant stenosis. No aneurysm. Right middle cerebral artery: Unremarkable. No occlusion or significant stenosis. No aneurysm. Right posterior cerebral artery: Unremarkable. No occlusion or significant stenosis. No aneurysm. Right vertebral artery: Unremarkable as visualized. Left internal carotid artery: No acute findings. Intracranial segment is patent with no significant stenosis. No aneurysm. Left anterior cerebral artery: Unremarkable. No occlusion or significant stenosis. No aneurysm. Left middle cerebral artery: Unremarkable. No occlusion or significant stenosis. No aneurysm. Left posterior cerebral artery: Unremarkable. No occlusion or significant stenosis. No aneurysm. Left vertebral artery: Unremarkable as visualized. Basilar artery: Unremarkable. No occlusion or significant stenosis. No aneurysm. IMPRESSION: Normal head CTA. Communications: Call Doctor Stroke Electronically signed by: Hector Morton MD 01/16/24 07:43 AM
--- NOTE | 2024-01-16 07:45 | CT Scan Report ---
Exam(s): CTA NECK With Contrast IV Amt: 115 mls optiray 320 EXAM: CT Angiography Neck With Intravenous Contrast CLINICAL HISTORY: Reason for exam: neuro deficit, acute stroke suspected. TECHNIQUE: Routine carotid CT angiography protocol was performed with intravenous contrast. NASCET criteria using the distal ICAs for comparison were used for evaluation of stenoses. CTDI is 53.34 mGy and DLP is 1498.69 mGy-cm. Automated exposure control was utilized for the study. A dose lowering technique was utilized adhering to the principles of ALARA. MIP reconstructed images were created and reviewed. CONTRAST: Patient received 115 mls optiray 320 of IV contrast COMPARISON: None. FINDINGS: VASCULATURE: Right common carotid artery: Unremarkable. No occlusion or significant stenosis. No dissection. Right internal carotid artery: Unremarkable. Extracranial segment is patent with no occlusion or significant stenosis. No dissection. Right external carotid artery: Unremarkable. No occlusion. Right vertebral artery: Unremarkable. No occlusion or significant stenosis. No dissection. Left common carotid artery: Unremarkable. No occlusion or significant stenosis. No dissection. Left internal carotid artery: Unremarkable. Extracranial segment is patent with no occlusion or significant stenosis. No dissection. Left external carotid artery: Unremarkable. No occlusion. Left vertebral artery: Unremarkable. No occlusion or significant stenosis. No dissection. NECK: Bones/joints: Unremarkable. No acute fracture. Soft tissues: Unremarkable. Lung apices: Clear. CAROTID STENOSIS REFERENCE USING NASCET CRITERIA: % ICA stenosis = (1 - narrowest ICA diameter/diameter of distal cervical ICA) x 100. Mild - <50% stenosis. Moderate - 50-69% stenosis. Severe - 70-94% stenosis. Near occlusion - 95-99% stenosis. Occluded - 100% stenosis. IMPRESSION: Negative CTA neck. Communications: Call Doctor Stroke Electronically signed by: Hector Morton MD 01/16/24 07:44 AM
[2024-01-16 07:52] LABS: Hematocrit (blood only) 41.5 % (42.0-52.0); Hemoglobin 14.5 g/dl (14.0-18.0); Mean Corpuscular Hemoglobin 29.9 pg (25.0-34.0); Mean Corpuscular Hgb Conc 34.9 g/dL (32.0-36.0); Mean Corpuscular Volume 85.6 fL (80.0-100.0); Platelet Count 436 K/uL (130-400); RDW Coefficient of Variation 14.3 % (11.5-14.5); RDW Standard Deviation 44.7 fL (36.4-46.3); Red Blood Count 4.85 M/uL (4.70-6.10); White Blood Count 28.73 K/ul (4.8-10.8)
[2024-01-16 08:12] LABS: Basophils # (auto) 0.05 K/uL (0.00-0.20); Basophils % (auto) 0.2 %; Eosinophils # (auto) 0.05 K/uL (0.00-0.50); Eosinophils % (auto) 0.2 %; Immature Granulocytes # (auto) 0.37 K/uL (0.01-0.20); Immature Granulocytes % (auto) 1.3 %; Lymphocytes % (auto) 2.1 %; Monocytes # (auto) 1.23 K/uL (0.11-0.59); Monocytes % (auto) 4.3 %; Neutrophils # (auto) 26.43 K/uL (1.40-6.50); Neutrophils % (auto) 91.9 %; RBC Morphology Unremarkable
[2024-01-16 08:12] LABS: Appearance Urine Clear (Clear); Bilirubin Urine Negative (Negative); Blood Urine 3+ (Negative); Color Urine Yellow; Glucose Urine UA Negative (Negative); Ketones Urine 2+ (Negative); Leukocyte Esterase Urine Negative (Negative); Nitrite Urine Negative (Negative); Protein Urine 1+ (Negative); Specific Gravity Urine 1.033 (1.000-1.030); Urobilinogen Urine Negative (Negative)
--- NOTE | 2024-01-16 08:16 | XRay Report ---
XR chest 1V portable CLINICAL HISTORY: Altered mental status. COMPARISON STUDY: Chest CT July 12, 2016. Chest radiograph July 15, 2016. FINDINGS: Lung volumes are mildly diminished. This is unchanged. There is no pneumothorax or pleural effusion. Stable cardiomegaly. There is pulmonary vascular congestion without overt pulmonary edema. There are bibasilar opacities, greater on the left. IMPRESSION: 1. Cardiomegaly with pulmonary vascular congestion. 2. Bibasilar opacities, greater on the left. The findings could reflect atelectasis or consolidation. ACT 112: Negative or not required by law. Electronically signed by: Zach Moy M.D. 01/16/2024 8:14 AM
[2024-01-16 08:25] LABS: Albumin Globulin Ratio 0.9 (0.9-2); Albumin Level 3.6 gm/dl (3.4-5.0); Calcium 8.3 mg/dl (8.6-10.3); Est GFR (African American) 112.9 ml/min; Est GFR (Non-African American) 97.4 ml/min; Globulin 3.9 gm/dl (2.5-4.0); Magnesium 1.6 mg/dl (1.7-2.4); Potassium 3.4 mmol/L (3.5-5.1); Total Protein 7.5 gm/dl (6.0-8.3)
[2024-01-16 08:31] LABS: Troponin I High Sensitivity 4.9 pg/ml (0-20)
[2024-01-16 08:40] LABS: INR 1.2 (0.9-1.1); Partial Thromboplastin Ratio 0.9; Partial Thromboplastin Time 25 Seconds (21-31); Prothrombin Time 12.7 Seconds (9.0-12.0)
[2024-01-16] MEDS: CEFEPIME 2,000 MG/20 ML VIAL IV STA (08:45)
[2024-01-16] MEDS: SODIUM CHLORIDE 0.9% 1,000 ML IV ONE (08:45)
[2024-01-16 08:48] LABS: Mucus Urine Present (None Prsent); Sperm Urine Present (None Prsent)
[2024-01-16 08:49] LABS: Bacteria Urine Automated 1+ (Negative)
[2024-01-16] MEDS: ACETAMINOPHEN 1,000 MG/100 ML VIAL IV STA (08:51)
[2024-01-16] MEDS ORDERED: VANCOMYCIN CONSULT ACTIVE PRN (08:55)
[2024-01-16] MEDS: metroNIDAZOLE 500 MG/100 ML BAG IV STA (09:04)
[2024-01-16] MEDS: LABETALOL HCL IV 5 MG/ML 20ML IV STA ×2 (09:06→11:51)
--- NOTE | 2024-01-16 09:32 | History & Physical Report ---
Date of Service January 16, 2024 Assessment & Plan (1) AMS (altered mental status): Plan: Found down by this morning, last known well 01/14 730pm. Dealing with sinusitis/pharyngitis for the last two weeks has been on 3 antibiotics. 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 Mild hydrocephalus - Intubated in the ER for airway protection - Neurology consult - recommend neurosurgery consults - transfer to tertiary care, may have blocked off 3rd ventricle from pus - given cefepime, flagyl, vancomycin and Meropenem (2) Hypertension: Plan: Hypertensive 200/100s on arrival received IV lopressor; Now hypotnsive requiring pressor (3) Encephalitis: Plan: as above (4) Meningitis: Plan: as above (5) Septic shock: Plan: as above (6) Rhabdomyolysis: Plan: as above, receiving IVFs Plan Dispo: admitted to ICU, critcally ill, transfer to [place] for neurosurgery Discussed case with Dr. yeung, director of distribution and Dr. Mercedes, Neurology History of Present Illness Chief Complaint: FOund down Primary Care Provider: МАРИНА Bey Bandar is a 53M with a PMH of CAD, HTN, HLD, and asplenia who presents to the ER after being found down by his this morning. Last known well was 730pm last night. battling with sinusitis/pharyngitis over the last two weeks. 2 different outpatient abx to include azithro, and Levaquin. reports maybe a complaint of headache yesterday but otherwise was feeling well. works in construction. Allergies Allergy/AdvReac Type Severity Reaction Status Date / Time amoxicillin Allergy Intermediate rash AND Verified 01/06/24 10:04 SOB doxycycline Allergy Unknown Unknown Verified 01/06/24 10:04 Home Medications Medication Instructions Recorded Confirmed Type aspirin 81 mg tablet,delayed 81 mg PO QAM 04/06/19 01/16/24 History release fexofenadine 180 mg tablet 180 mg PO QAM 04/06/19 01/16/24 History clopidogrel 75 mg tablet 75 mg PO DAILY #90 tabs 03/31/23 01/16/24 Rx hydrochlorothiazide 25 mg tablet See Rx Instructions .Route 06/25/23 01/16/24 Rx .COMPLEX #90 tabs nitroglycerin 0.4 mg sublingual 0.4 mg sublingual Q5M PRN Chest 08/19/23 01/16/24 Rx tablet Pain #25 tabs fluticasone propionate 50 2 spray intranasal DAILY #9.9 grams 09/18/23 01/16/24 Rx mcg/actuation nasal spray,suspension (Flonase Allergy Relief) bupropion HCl 150 mg 24 hr tablet, 150 mg PO QAM #90 tabs 11/17/23 01/16/24 Rx extended release carvedilol 12.5 mg tablet 12.5 mg PO BID #180 tabs 01/06/24 01/16/24 Rx amlodipine 10 mg tablet 10 mg PO QAM 01/16/24 01/16/24 History benazepril 40 mg tablet 0 mg PO QAM 01/16/24 01/16/24 History chlorhexidine gluconate 0.12 % 1 ea PO AMPM 01/16/24 01/16/24 History mouthwash ibuprofen 800 mg tablet 800 mg PO Q6H 01/16/24 01/16/24 History paroxetine HCl 40 mg tablet 0 mg PO QAM 01/16/24 01/16/24 History rosuvastatin 40 mg tablet 0 mg PO DAILY 01/16/24 01/16/24 History tramadol 50 mg tablet 50 - 100 mg PO Q6H PRN Pain 01/16/24 01/16/24 History Past Med/Surg History Medical History (Updated 01/16/24 @ 15:22 by Katy Silver PA-C) Antibiotic-induced myalgia Cough Fever Morbid obesity CAD (coronary artery disease) STENT X 1 (2013) Anxiety Hypertension Hyperlipidemia Anxiety reaction Surgical History History of tympanostomy tube placement (~04/2019) History of ankle surgery Treatment of ankle fracture History of cardiac cath (~07/2016) History of esophagogastroduodenoscopy (EGD) (~08/2016) History of colonoscopy History of splenectomy (~1988) S/P TRAUMA (KICKED BY HORSE) History of tooth extraction H/O percutaneous transluminal coronary angioplasty Family History Mother Family history of diabetes mellitus Brother Coronary heart disease Father Hx of CABG Unknown Cardiac disorder Other No family history of bleeding disorder Social History (Updated 01/01/24 @ 11:28 by JHONATHAN Chino) Smoking Status: Never smoker Second Hand Exposure: No; Do You Dip or Chew Tobacco: No; Hx Alcohol Use: No Hx Substance Use: No Preferred Language: Micronesian Communication Ability: Effective Communication Ability Comment: intubated Lumber Loader Required: No Beliefs That Will Affect Care: None Current Living Situation: Spouse current occupational status: employed Feels Safe at Home: Yes Assistive Devices: None Physical Exam Physical Exam: nonverbal, does not respond to commands fluid behind Right tympanic membrane. unable to visualize left TM moaning, but stable on room air initially, when evaluated later apneic episodes RRR no signs of pain with abdominal palpation nonpurposeful movements of right arm mild LE edema Results & Data Results & Data Vital Signs (Past 12 Hours) Vital Signs Temp Pulse Resp BP Pulse Ox O2 Del Method 01/16/24 09:06 90 01/16/24 08:48 97 Room Air 01/16/24 08:19 37.9 C H 82 29 H 100 01/16/24 08:15 37.9 C H 88 29 H 99 Room Air 01/16/24 08:10 80 01/16/24 08:00 37.4 C 83 29 H 97 01/16/24 07:57 37.2 C 01/16/24 07:55 182/105 H 01/16/24 07:55 36.7 C 85 29 H 99 01/16/24 07:50 179/105 H 01/16/24 07:50 85 27 H 99 Room Air 01/16/24 07:45 183/108 H 01/16/24 07:45 83 25 H 98 Room Air 01/16/24 07:40 180/99 H 01/16/24 07:40 84 26 H 97 01/16/24 07:38 83 32 H 98 01/16/24 07:16 78 25 H 182/97 H 97 Room Air Laboratory Results CBC, chemistry, lactate, trop, CK reviewed Diagnostic Findings Head CT, head and neck CTA, brain MRI reviewed Head CT 01/16/24 07:03 CR Exam(s): CT HEAD Without Contrast EXAM: CT Head Without Intravenous Contrast CLINICAL HISTORY: Reason for exam: neuro deficit, acute stroke suspected. TECHNIQUE: Axial computed tomography images of the head/brain without intravenous contrast. CTDI is 53.34 mGy and DLP is 1498.69 mGy-cm. Automated exposure control was utilized for the study. A dose lowering technique was utilized adhering to the principles of ALARA. COMPARISON: No relevant prior studies available. FINDINGS: Brain: Unremarkable. No hemorrhage. No significant white matter disease. No edema. Ventricles: Unremarkable. No ventriculomegaly. Bones/joints: Unremarkable. No acute fracture. Soft tissues: Unremarkable. Sinuses: Unremarkable as visualized. No acute sinusitis. Mastoid air cells: Unremarkable as visualized. No mastoid effusion. IMPRESSION: No acute intracranial abnormality Communications: Call Doctor Stroke Electronically signed by: Hector Morton MD 01/16/24 07:41 AM Head CTA 01/16/24 07:03 CR Exam(s): CTA HEAD With Contrast IV Amt: 115 mls optiray 320 EXAM: CT Angiography Head With Intravenous Contrast CLINICAL HISTORY: Reason for exam: neuro deficit, acute stroke suspected. TECHNIQUE: Axial computed tomographic angiography images of the head with intravenous contrast. CTDI is 53.34 mGy and DLP is 1498.69 mGy-cm. Automated exposure control was utilized for the study. A dose lowering technique was utilized adhering to the principles of ALARA. MIP reconstructed images were created and reviewed. CONTRAST: Patient received 115 mls optiray 320 of IV contrast COMPARISON: No relevant prior studies available. FINDINGS: Right internal carotid artery: No acute findings. Intracranial segment is patent with no significant stenosis. No aneurysm. Right anterior cerebral artery: Unremarkable. No occlusion or significant stenosis. No aneurysm. Right middle cerebral artery: Unremarkable. No occlusion or significant stenosis. No aneurysm. Right posterior cerebral artery: Unremarkable. No occlusion or significant stenosis. No aneurysm. Right vertebral artery: Unremarkable as visualized. Left internal carotid artery: No acute findings. Intracranial segment is patent with no significant stenosis. No aneurysm. Left anterior cerebral artery: Unremarkable. No occlusion or significant stenosis. No aneurysm. Left middle cerebral artery: Unremarkable. No occlusion or significant stenosis. No aneurysm. Left posterior cerebral artery: Unremarkable. No occlusion or significant stenosis. No aneurysm. Left vertebral artery: Unremarkable as visualized. Basilar artery: Unremarkable. No occlusion or significant stenosis. No aneurysm. IMPRESSION: Normal head CTA. Communications: Call Doctor Stroke Electronically signed by: Hector Morton MD 01/16/24 07:43 AM Neck CTA 01/16/24 07:03 CR Exam(s): CTA NECK With Contrast IV Amt: 115 mls optiray 320 EXAM: CT Angiography Neck With Intravenous Contrast CLINICAL HISTORY: Reason for exam: neuro deficit, acute stroke suspected. TECHNIQUE: Routine carotid CT angiography protocol was performed with intravenous contrast. NASCET criteria using the distal ICAs for comparison were used for evaluation of stenoses. CTDI is 53.34 mGy and DLP is 1498.69 mGy-cm. Automated exposure control was utilized for the study. A dose lowering technique was utilized adhering to the principles of ALARA. MIP reconstructed images were created and reviewed. CONTRAST: Patient received 115 mls optiray 320 of IV contrast COMPARISON: None. FINDINGS: VASCULATURE: Right common carotid artery: Unremarkable. No occlusion or significant stenosis. No dissection. Right internal carotid artery: Unremarkable. Extracranial segment is patent with no occlusion or significant stenosis. No dissection. Right external carotid artery: Unremarkable. No occlusion. Right vertebral artery: Unremarkable. No occlusion or significant stenosis. No dissection. Left common carotid artery: Unremarkable. No occlusion or significant stenosis. No dissection. Left internal carotid artery: Unremarkable. Extracranial segment is patent with no occlusion or significant stenosis. No dissection. Left external carotid artery: Unremarkable. No occlusion. Left vertebral artery: Unremarkable. No occlusion or significant stenosis. No dissection. NECK: Bones/joints: Unremarkable. No acute fracture. Soft tissues: Unremarkable. Lung apices: Clear. CAROTID STENOSIS REFERENCE USING NASCET CRITERIA: % ICA stenosis = (1 - narrowest ICA diameter/diameter of distal cervical ICA) x 100. Mild - <50% stenosis. Moderate - 50-69% stenosis. Severe - 70-94% stenosis. Near occlusion - 95-99% stenosis. Occluded - 100% stenosis. IMPRESSION: Negative CTA neck. Communications: Call Doctor Stroke Electronically signed by: Hector Morton MD 01/16/24 07:44 AM Chest X-Ray 01/16/24 07:59 XR chest 1V portable CLINICAL HISTORY: Altered mental status. COMPARISON STUDY: Chest CT July 12, 2016. Chest radiograph July 15, 2016. FINDINGS: Lung volumes are mildly diminished. This is unchanged. There is no pneumothorax or pleural effusion. Stable cardiomegaly. There is pulmonary vascul ar congestion without overt pulmonary edema. There are bibasilar opacities, greater on the left. IMPRESSION: 1. Cardiomegaly with pulmonary vascular congestion. 2. Bibasilar opacities, greater on the left. The findings could reflect atelectasis or consolidation. ACT 112: Negative or not required by law. Electronically signed by: Zach Moy M.D. 01/16/2024 8:14 AM Brain MRI 01/16/24 09:53 MRI OF THE BRAIN WITHOUT AND WITH IV CONTRAST CLINICAL HISTORY: stroke vs encephalitis COMPARISON STUDY: Head CT and CTA of the head January 16, 2024. TECHNIQUE: Utilizing a 1.5 Jennifer magnet and dedicated coil, multiplanar, multiecho imaging of the brain was performed pre and postcontrast administration. IV administration of 14.5 mL of Gadavist contrast was uneventful. FINDINGS: The diffusion-weighted sequences demonstrate extensive cortical hyperintensity, greater within the right cerebral hemisphere. Correlation with the ADC map is difficult on this exam however portions of the hyperintense foci on the diffusion-weighted sequence appear hypointense on the ADC map. There may be mild associated cortical edema. There is no significant mass effect. Mild ventricular dilatation is noted when compared to earlier head CT of July 15, 2016. Of note, there is a small amount of layering material within the occipital horns of the lateral ventricles. In addition, there are fluid fluid levels within the extra-axial CSF space between the cerebellar hemispheres. There is slight asymmetric dural thickening and enhancement overlying the right cerebral hemisphere. There is no evidence for herniation. No intracranial masses are identified. There is no leptomeningeal enhancement. The superior sagittal sinus appears somewhat diminutive but appears patent on postcontrast sequences. Calvarial signal is normal. There is fluid within the right middle ear and mastoid air cells. This was also shown on earlier CT of September 23, 2019. No orbital abnormality is identified. Secretions within the nasopharynx likely related to intubation. IMPRESSION: 1. Extensive cortical hyperintensity on the diffusion-weighted sequences, greater within the right cerebral hemisphere. Mild asymmetric dural thickening and enhancement overlying the right cerebral hemisphere without leptomeningeal enhancement. Small amount of layering material within the occipital horns of the lateral ventricles and within the extra-axial spaces of the posterior fossa. Overall, the imaging findings are highly suggestive of an infectious process with meningitis, cerebritis and involvement of the ventricular system/CSF. Associated mild hydrocephalus. 2. No evidence for acute hemorrhage. Mild mass effect. No midline shift. No evidence for herniation. 3. Fluid within the right middle ear and mastoid air cells, shown on earlier CT of September 23, 2019. ACT 112: Negative or not required by law. Electronically signed by: Zach Moy M.D. 01/16/2024 2:01 PM Chest X-Ray 01/16/24 10:17 SUPINE PORTABLE AP CHEST RADIOGRAPH CLINICAL HISTORY: intubation COMPARISON STUDY: Chest radiograph performed earlier today. FINDINGS: Tip of endotracheal tube is 3.6 cm above the korin. There is no pneumothorax or pleural effusion on supine exam. Allowing for supine technique, cardiomediastinal silhouette is stable. There may be pulmonary vascular congestion. Mild bibasilar opacities are again noted. IMPRESSION: 1. Satisfactory positioning of the endotracheal tube. 2. Persistent bibasilar opacities. 3. Stable cardiomegaly with pulmonary vascular congestion. ACT 112: Negative or not required by law. Electronically signed by: Zach Moy M.D. 01/16/2024 10:45 AM ECG Additional Comments: ECG with sinus rhythm, rate 81, bigeminy, prolonged QTc 490,no ischemic changes Code Status & VTE Plan Code Status FULL CODE Supervising Physician Co-Signing Physician Notes PA Supervision Note: I personally saw and examined the patient. I verified all tolminson points and agree with STANTON Silver with the following exceptions and/or additions: S-This pt is a 53 yo male with history noted as above, here with 2 weeks of sinus congestion, ear pain, URI symptoms, treated with outpt courses of azithromycin and then Levaquin (due to PCN and doxycycline allergies) who also had a dental procedure with a tooth extraction a few days prior, who presents after being found down for unknown length of time at home. Last known well was 12 hrs prior by . Was initially awake and nonverbal, with left side flaccid as per ED physician. By the time I came to assess him, he was obtunded, having periods of apnea, was unresponsive to sternal rub, significantly hypertensive, and febrile. I discussed his care with the Special Equipment Technician and then asked the ED physician to emergently intubate the patient in the ED. He was given broad spectrum antibiotics to cover for meningitis, PNA, given ASA 300mg MD x 1 in case of acute CVA (after had negative head CT and CTA H/N), IVFs. MRI brain performed after intubation and showed cerebritis, encephalitis, IV purulence, and hydrocephalus I supervised STANTON Silver in making arrangements for transfer to [facility] after discussion s with Neurology and NS O- Vitals reviewed Gen:obtunded, cheynne barron respirations, eyes open, morbidly obese CV: [RRR no mgr nl S1S2] Pulm: [CTAB no wcr] Abd: [+BS soft NT ND no masses or hernias] Ext: [no edema, 2+ DP pulses] Skin: [no rashes, warm/dry] Neuro: left side flaccid Labs, Rads, and ECG reviewed A/P-53 yo male here with left hemiparesis from cerebritis/encephalitis/meningitis, with septic shock now with VDRF due to being unable to maintain airway Continue broad spectrum abx, IVFs, pressors lines being placed by ICU Transfer urgently for NS eval at [facility] Care Time/CCT Total # of Minutes Spent Total Time Spent with Patient: Total time spent is greater than 50% in coordination of care (as documented) at patient's floor/unit and/or counseling patient: Coding Level of Care Code 50146 INT INP/OBS CARE 3/75MIN Diagnoses AMS (altered mental status) R41.82 Hypertension I10 Encephalitis G04.90 Meningitis G03.9 Septic shock A41.9; R65.21 Rhabdomyolysis M62.82
[2024-01-16 09:33] LABS: Base Excess ABG -3.2 mEq/L (-9-1.8); HCO3 ABG 17 mmol/L (19-24); PCO2 ABG 20 mmHg (35-46); PO2 ABG 103 mmHg (80-95)
[2024-01-16] MEDS: LACTATED RINGER'S 1,000 ML IV ONE (09:33)
[2024-01-16 09:34] LABS: Allen Test Pos (Pos)
[2024-01-16] MEDS: VANCOMYCIN HCL 2,750 MG in SODIUM CHLORIDE 0.9% 500 ML IV ONE (09:34)
[2024-01-16 09:35] LABS: pH ABG 7.54 (7.35-7.45)
[2024-01-16] MEDS: ASPIRIN 300 MG SUPP PR ONE (09:50)
--- NOTE | 2024-01-16 09:59 | Critical Care Consultation ---
Date of Consultation January 16, 2024 Assessment & Plan (1) AMS (altered mental status): (2) Rhabdomyolysis: (3) Sepsis: (4) Status post insertion of drug-eluting stent into left anterior descending (LAD) artery: (5) Depression: (6) Fever: (7) HTN (hypertension): (8) Hypercholesterolemia: Plan Reason Critically Ill: 53-year-old male past medical history of coronary artery disease, dyslipidemia, asplenia was brought into the hospital for altered mental status. Neuro - [facility]: Unable to assess --Metabolic encephalopathy Multifactorial Does seem to have sepsis Possibility of meningitis is also there especially given muscular weakness on the physical exam CT head was negative for any bleed or acute stroke on 01/16/2024 Aspiration precautions --History of anxiety On paroxetine at home Cardiac - -- Hypertensive emergency in the ED but hypotensive at presentation to the ICU Initial systolic blood pressure on multiple readings in the ER was in the 200s I will start the patient on vasopressors and keep MAP around 80 for the first 24 hours. On amlodipine, Coreg and hydrochlorothiazide at home EKG 01/16/2024 7:18 AM: Sinus rhythm with first-degree AV block, motion artifact, T wave depressions appreciated on the lateral leads especially V3-V4 and V5, no T wave changes Respiratory - -- VDRF For airway protection Continue with ventilatory support Keep RASS -1 Daily sedation holidays and SBT's GI - -- No acute issues RENAL/LYTES - -- HAGMA Delta-delta: 1, Pure anion gap metabolic acidosis Likely sec to lactic acidosis Follow up serum osm, urine osm, urine lytes Follow up ABG Monitor -- Rhabdomyolysis CPK 1556 Continue with IV fluids - -- Strict in and out ENDO - -- ICU hypoglycemia protocol HEME - -- History of asplenia Puts the patient at risk for bacteria with capsids ID - -- Leukocytosis with altered mental status Possibility of meningitis/encephalitis is there Procalcitonin 0.2 UA shows +1 bacteria, negative for nitrate, +2 ketones --Prophylaxis VTE: IPC GI: Pantoprazole Lines: Peripheral Diet: N.p.o. Plan: Given that the patient systolic blood pressure in the ED was in the 200s on multiple readings, he came in the ICU with systolic blood pressure in the low 60s. I will keep the patient on vasopressors to keep MAP in the 80s which will be approximately 25% decline in the original presenting MAP MRI of the brain Based on the MRI consideration for LP will be made Recommend empiric meningitis treatment with vancomycin, ampicillin (Bactrim or meropenem given the allergy to PCN). Will give acyclovir also one dose till we get LP. Follow-up nasal MRSA Stat neurology consult after talking with radiology regarding possible pus in the cerebral ventricles as well as mild hydrocephalus. I will get ID consult as well. Case was discussed with primary team Patient's Shawanda [phone] I have personally spent 65 minutes of critical care time in the direct management of this patient. This is a life/limb threatening event. This includes time spent evaluating patient, direct bedside care, chart review, placing orders, interpretation of diagnostic studies, discussion with consultants, patient, and family members, as well as other required patient management activities. This time is exclusive of all separately billable procedures, and teaching time and separate from and in addition to any other critical care service time. History of Present Illness History of Present Illness 53-year-old male was brought into the hospital for altered mental status Past medical history of coronary artery disease, dyslipidemia, and ectomy when he was 4 years old ICU was also consulted for the same Patient apparently had 2 dental procedures not too long ago for which she completed antibiotics as well. Which included azithromycin as well as levofloxacin He has been having symptoms with headache and sinus pain for approximately 3 weeks. At the time of examination patient was intubated, breathing with the vent There was no infection including etomidate and intubation. He just came back from the MRI. Systolic blood pressure was in the low 60s at the time of examination and was persistently low. He was started on Levophed at 0.3 elevated with a gradual taper down to 0.1 No rash appreciated on the body Did have conjunctival erythema. Please make note history was obtained from previous chart as well as signout from Katy Silver as well as patient's Allergies Allergy/AdvReac Type Severity Reaction Status Date / Time amoxicillin Allergy Intermediate rash AND Verified 01/06/24 10:04 SOB doxycycline Allergy Unknown Unknown Verified 01/06/24 10:04 Home Medications Medication Instructions Recorded Confirmed Type aspirin 81 mg tablet,delayed 81 mg PO QAM 04/06/19 01/16/24 History release fexofenadine 180 mg tablet 180 mg PO QAM 04/06/19 01/16/24 History clopidogrel 75 mg tablet 75 mg PO DAILY #90 tabs 03/31/23 01/16/24 Rx hydrochlorothiazide 25 mg tablet See Rx Instructions .Route 06/25/23 01/16/24 Rx .COMPLEX #90 tabs nitroglycerin 0.4 mg sublingual 0.4 mg sublingual Q5M PRN Chest 08/19/23 01/16/24 Rx tablet Pain #25 tabs fluticasone propionate 50 2 spray intranasal DAILY #9.9 grams 09/18/23 01/16/24 Rx mcg/actuation nasal spray,suspension (Flonase Allergy Relief) bupropion HCl 150 mg 24 hr tablet, 150 mg PO QAM #90 tabs 11/17/23 01/16/24 Rx extended release carvedilol 12.5 mg tablet 12.5 mg PO BID #180 tabs 01/06/24 01/16/24 Rx amlodipine 10 mg tablet 10 mg PO QAM 01/16/24 01/16/24 History benazepril 40 mg tablet 0 mg PO QAM 01/16/24 01/16/24 History chlorhexidine gluconate 0.12 % 1 ea PO AMPM 01/16/24 01/16/24 History mouthwash ibuprofen 800 mg tablet 800 mg PO Q6H 01/16/24 01/16/24 History paroxetine HCl 40 mg tablet 0 mg PO QAM 01/16/24 01/16/24 History rosuvastatin 40 mg tablet 0 mg PO DAILY 01/16/24 01/16/24 History tramadol 50 mg tablet 50 - 100 mg PO Q6H PRN Pain 01/16/24 01/16/24 History Patient History Medical History Antibiotic-induced myalgia Cough Fever Morbid obesity CAD (coronary artery disease) Anxiety Hypertension Hyperlipidemia Anxiety reaction Surgical History History of tympanostomy tube placement (~04/2019) History of ankle surgery History of cardiac cath (~07/2016) History of esophagogastroduodenoscopy (EGD) (~08/2016) History of colonoscopy History of splenectomy (~1988) History of tooth extraction H/O percutaneous transluminal coronary angioplasty Family History Mother Family history of diabetes mellitus Brother Coronary heart disease Father Hx of CABG Unknown Cardiac disorder Other No family history of bleeding disorder Social History (Updated 01/01/24 @ 11:28 by JHONATHAN Chino) Smoking Status: Never smoker Second Hand Exposure: No; Do You Dip or Chew Tobacco: No; Hx Alcohol Use: No Hx Substance Use: No Preferred Language: Monegasque Communication Ability: Effective Conference Assistant Required: No Beliefs That Will Affect Care: None Current Living Situation: Family current occupational status: employed Feels Safe at Home: Yes Assistive Devices: None Review of Systems 2 Review of Systems: Unobtainable due to cognitive status Physical Exam 2 Physical Exam: Constitutional: No acute distress HEENT: Sluggish pupillary response, conjunctival injection Respiratory system: Decreased air entry bilaterally, no wheeze, rhonchi, mild crackles bilateral lower lobe CVS: S1-S2 positive, no murmurs or gallops Abdomen: Soft, nontender, nondistended, positive bowel sounds x4, obese Extremities: + 1 pulses bilaterally radialis/ dorsalis pedis, no cyanosis, no edema Neuro: Sedated, paralyzed, breathing with the vent Psych: Unable to assess G/U: Positive [place] Skin: no rashes, warm and dry Lymphatic: no cervical or axillary lymphadenopathy Results & Data Results & Data Vital Signs (Past 12 Hours) Vital Signs Temp Pulse Pulse Resp BP BP Pulse Ox 01/16/24 09:32 76 16 212/130 H 99 01/16/24 09:06 90 01/16/24 08:48 97 01/16/24 08:19 37.9 C H 82 29 H 100 01/16/24 08:15 37.9 C H 88 29 H 99 01/16/24 08:10 80 01/16/24 08:00 37.4 C 83 29 H 97 01/16/24 07:57 37.2 C 01/16/24 07:55 182/105 H 01/16/24 07:55 36.7 C 85 29 H 99 01/16/24 07:50 179/105 H 01/16/24 07:50 85 27 H 99 01/16/24 07:45 183/108 H 01/16/24 07:45 83 25 H 98 01/16/24 07:40 180/99 H 01/16/24 07:40 84 26 H 97 01/16/24 07:38 83 32 H 98 01/16/24 07:16 78 25 H 182/97 H 97 O2 Del Method 01/16/24 09:32 Room Air 01/16/24 09:06 01/16/24 08:48 Room Air 01/16/24 08:19 01/16/24 08:15 Room Air 01/16/24 08:10 01/16/24 08:00 01/16/24 07:57 01/16/24 07:55 01/16/24 07:55 01/16/24 07:50 01/16/24 07:50 Room Air 01/16/24 07:45 01/16/24 07:45 Room Air 01/16/24 07:40 01/16/24 07:40 01/16/24 07:38 01/16/24 07:16 Room Air Laboratory Results 01/16/24 07:28 01/16/24 07:28 Coding Level of Care Code 34502 CRITICAL CARE 1ST 30-74M Diagnoses AMS (altered mental status) R41.82 Rhabdomyolysis M62.82 Sepsis, due to unspecified organism, unspecified whether acute organ dysfunction present A41.9 Sepsis acute organ dysfunction status: unspecified Sepsis type: sepsis due to unspecified organism Status post insertion of drug-eluting stent into left anterior descending (LAD) artery Z95.5 Depression F32.9 Fever R50.9 HTN (hypertension) I10 Hypercholesterolemia E78.00 (3) Sepsis Sepsis acute organ dysfunction status: unspecified Sepsis type: sepsis due to unspecified organism Qualified Code(s): A41.9 - Sepsis, unspecified organism
[2024-01-16] MEDS: propofoL 1,000 MG/100 ML VIAL IV SCH (10:16)
[2024-01-16 10:26] LABS: Adenovirus PCR Not Detected (NotDetected); Bordetella parapertussis PCR Not Detected (NotDetected); Bordetella pertussis PCR Not Detected (NotDetected); Chlamydia pneumoniae PCR Not Detected (NotDetected); Coronavirus 229E PCR Not Detected (NotDetected); Coronavirus CoV-2 (COVID19)PCR Not Detected (NotDetected); Coronavirus HKU1 PCR Not Detected (NotDetected); Coronavirus NL63 PCR Not Detected (NotDetected); Coronavirus OC43PCR Not Detected (NotDetected); Human Metapneumovirus PCR Not Detected (NotDetected); Influenza A PCR Not Detected (NotDetected); Influenza B PCR Not Detected (NotDetected); Mycoplasma pneumoniae PCR Not Detected (NotDetected); Parainfluenza Virus 1 PCR Not Detected (NotDetected); Parainfluenza Virus 2 PCR Not Detected (NotDetected); Parainfluenza Virus 3 PCR Not Detected (NotDetected); Parainfluenza Virus 4 PCR Not Detected (NotDetected); Respiratory Syncytial VirusPCR Not Detected (NotDetected); Rhinovirus/Enterovirus PCR Not Detected (NotDetected)
[2024-01-16] MEDS: PROPOFOL IV EMULSION 10 MG/ML 100 ML VIAL IV ONE (10:34)
[2024-01-16] MEDS: PROPOFOL BOLUS FROM BAG IV PRN (10:45)
--- NOTE | 2024-01-16 10:46 | XRay Report ---
SUPINE PORTABLE AP CHEST RADIOGRAPH CLINICAL HISTORY: intubation COMPARISON STUDY: Chest radiograph performed earlier today. FINDINGS: Tip of endotracheal tube is 3.6 cm above the korin. There is no pneumothorax or pleural ef fusion on supine exam. Allowing for supine technique, cardiomediastinal silhouette is stable. There m ay be pulmonary vascular congestion. Mild bibasilar opacities are again noted. IMPRESSION: 1. Satisfactory positioning of the endotracheal tube. 2. Persistent bibasilar opacities. 3. Stable cardiomegaly with pulmonary vascular congestion. ACT 112: Negative or not required by law. Electronically signed by: Zach Moy M.D. 01/16/2024 10:45 AM
[2024-01-16 11:40] LABS: Acetaminophen 8 ug/ml (10-30); Salicylate < 3.0 mg/dl (3.0-30)
[2024-01-16] MEDS ORDERED: ACETAMINOPHEN 1,000 MG/100 ML VIAL IV PRN (11:52)
[2024-01-16] MEDS ORDERED: STAT IV Infusion **Titration per Protocol STA ×2 (11:52→12:21)
[2024-01-16] MEDS ORDERED: fentaNYL BOLUS from BAG IV PRN (11:52)
[2024-01-16] MEDS ORDERED: fentaNYL citrate 2,500 MCG/250 ML BAG IV SCH (12:00)
[2024-01-16] MEDS: GADOBUTROL 30ML VIAL IV ONE (12:13)
[2024-01-16 12:45] LABS: Amphetamines+Metham, Urine Neg (Neg); Barbiturates, Urine Neg (Neg); Benzodiazepine, Urine Neg (Neg); Cocaine, Urine Neg (Neg); MDMA (Ecstacy), Urine Pos (Neg); Marijuana, Urine Neg (Neg); Methadone, Urine Neg (Neg); Opiate, Urine Neg (Neg); Phencyclidine, Urine Neg (Neg)
[2024-01-16] MEDS ORDERED: PHARMACIST DISCHARGE MED REC CONSULT PRN (12:55)
[2024-01-16] MEDS: MEROPENEM 2,000 MG in 0.9 % SODIUM CHLORIDE 60 ML IV SCH (12:57)
[2024-01-16] MEDS: NOREPINEPHRINE/D5W 4 MG/250 ML IV ONE (12:58)
[2024-01-16] MEDS: ACYCLOVIR SOD IV STA (12:58)
[2024-01-16] MEDS: DEXTROSE 5% IV STA (12:58)
[2024-01-16] MEDS: STAT IV Infusion **Titration per Protocol STA (12:58)
[2024-01-16] MEDS: NOREPINEPHRINE/D5W 4 MG/250 ML PLCT IV SCH (12:59)
[2024-01-16] MEDS: RAPID SEQUENCE INDUCTION BAG ONE (13:00)
--- NOTE | 2024-01-16 13:37 | Electrocardiogram Report ---
Test Reason : Blood Pressure : / mmHG Vent. Rate : 081 BPM Atrial Rate : 081 BPM P-R Int : 300 ms QRS Dur : 092 ms QT Int : 352 ms P-R-T Axes : 035 033 -70 degrees QTc Int : 408 ms Sinus rhythm with 1st degree A-V block Nonspecific ST and T wave abnormality Abnormal ECG When compared with ECG of 15-JUL-2016 17:43, Aberrant conduction is no longer Present KS interval has increased Confirmed by Jerardo Sims ([id number]) on 01/16/2024 1:37:14 PM Referred By: REFERRED SELF Confirmed By:Jerardo Sims
--- NOTE | 2024-01-16 13:37 | Electrocardiogram Report ---
Test Reason : Blood Pressure : / mmHG Vent. Rate : 081 BPM Atrial Rate : 081 BPM P-R Int : 138 ms QRS Dur : 088 ms QT Int : 422 ms P-R-T Axes : 000 018 -42 degrees QTc Int : 490 ms Sinus rhythm with frequent Premature ventricular complexes in a pattern of bigeminy Low voltage QRS Nonspecific ST and T wave abnormality Prolonged QT Abnormal ECG When compared with ECG of 16-JAN-2024 07:18, (unconfirmed) Premature ventricular complexes are now Present DE interval has decreased Nonspecific T wave abnormality, improved in Lateral leads QT has lengthened Confirmed by Jerardo Sims ([id number]) on 01/16/2024 1:37:33 PM Referred By: REFERRED SELF Confirmed By:Jerardo Sims
--- NOTE | 2024-01-16 14:02 | Magnetic Resonance Report ---
MRI OF THE BRAIN WITHOUT AND WITH IV CONTRAST CLINICAL HISTORY: stroke vs encephalitis COMPARISON STUDY: Head CT and CTA of the head January 16, 2024. TECHNIQUE: Utilizing a 1.5 Jennifer magnet and dedicated coil, multiplanar, multiecho imaging of the br ain was performed pre and postcontrast administration. IV administration of 14.5 mL of Gadavist cont rast was uneventful. FINDINGS: The diffusion-weighted sequences demonstrate extensive cortical hyperintensity, greater wit hin the right cerebral hemisphere. Correlation with the ADC map is difficult on this exam however por tions of the hyperintense foci on the diffusion-weighted sequence appear hypointense on the ADC map. There may be mild associated cortical edema. There is no significant mass effect. Mild ventricular di latation is noted when compared to earlier head CT of July 15, 2016. Of note, there is a small a mount of layering material within the occipital horns of the lateral ventricles. In addition, there a re fluid fluid levels within the extra-axial CSF space between the cerebellar hemispheres. There is s light asymmetric dural thickening and enhancement overlying the right cerebral hemisphere. There is n o evidence for herniation. No intracranial masses are identified. There is no leptomeningeal enhancem ent. The superior sagittal sinus appears somewhat diminutive but appears patent on postcontrast seque nces. Calvarial signal is normal. There is fluid within the right middle ear and mastoid air cells. T his was also shown on earlier CT of September 23, 2019. No orbital abnormality is identified. Secretio ns within the nasopharynx likely related to intubation. IMPRESSION: 1. Extensive cortical hyperintensity on the diffusion-weighted sequences, greater within the right ce rebral hemisphere. Mild asymmetric dural thickening and enhancement overlying the right cerebral billie sphere without leptomeningeal enhancement. Small amount of layering material within the occipital hor ns of the lateral ventricles and within the extra-axial spaces of the posterior fossa. Overall, the i maging findings are highly suggestive of an infectious process with meningitis, cerebritis and involv ement of the ventricular system/CSF. Associated mild hydrocephalus. 2. No evidence for acute hemorrhage. Mild mass effect. No midline shift. No evidence for herniation. 3. Fluid within the right middle ear and mastoid air cells, shown on earlier CT of September 23, 2019. ACT 112: Negative or not required by law. Electronically signed by: Zach Moy M.D. 01/16/2024 2:01 PM
[2024-01-16] MEDS: VASOPRESSIN 20 UNITS in 0.9 % SODIUM CHLORIDE 100 ML IV SCH (14:09)
[2024-01-16] MEDS: PANTOprazole 40 MG in SYRINGE 0 ML IV SCH (14:09)
[2024-01-16] MEDS: ICU Protocol for HYPERglycemia SCH (14:09)
--- NOTE | 2024-01-16 14:23 | Neurology Consultation ---
Date of Consultation January 16, 2024 Assessment & Plan (1) Sepsis: History of Present Illness Attending Physician: Fartun Jenkins MD History of Present Illness pt intubated and requiring pressors to maintain his pressure. mri brains showing extensive cortical change with likely infection and pus around the cerebellum. pt nonverbal and in comatose state. pt was sick with viral like symptoms for about 2 weeks per family. not clear how long he was down as found him this morning on the floor. admission HPI:Patient is a 53-year-old gentleman past medical history of hypertension and CAD with stents presenting here via ambulance today after being found unresponsive on the floor by . Patient evidently according to EMS was last seen around 730 last night. woke and found him on the floor this morning. Would not talk and not really moving and EMS was called. Made a stroke alert prior to arrival. Patient does not follow commands and is nonverbal upon arrival. Eyes open bit of a right gaze preference. Occasionally moving right arm with no movement of left arm or leg appreciable or significantly in the right leg. Patient I will provide additional history. reports he did have some dental work recently and did hold his Plavix he is unsure if he is restarted it. He is normally on aspirin and Plavix. Recently treated and finished course of several antibiotics for sinus and dental infection. reports that maybe he reported headache earlier but no other verbal information. She states he found him some sort of rolled next to the couch is unclear if he fell or was trying off the couch and ended up there with his leg underneath of him. Allergies Allergy/AdvReac Type Severity Reaction Status Date / Time amoxicillin Allergy Intermediate rash AND Verified 01/06/24 10:04 SOB doxycycline Allergy Unknown Unknown Verified 01/06/24 10:04 Home Medications Medication Instructions Recorded Confirmed Type aspirin 81 mg tablet,delayed 81 mg PO QAM 04/06/19 01/16/24 History release fexofenadine 180 mg tablet 180 mg PO QAM 04/06/19 01/16/24 History clopidogrel 75 mg tablet 75 mg PO DAILY #90 tabs 03/31/23 01/16/24 Rx hydrochlorothiazide 25 mg tablet See Rx Instructions .Route 06/25/23 01/16/24 Rx .COMPLEX #90 tabs nitroglycerin 0.4 mg sublingual 0.4 mg sublingual Q5M PRN Chest 08/19/23 01/16/24 Rx tablet Pain #25 tabs fluticasone propionate 50 2 spray intranasal DAILY #9.9 grams 09/18/23 01/16/24 Rx mcg/actuation nasal spray,suspension (Flonase Allergy Relief) bupropion HCl 150 mg 24 hr tablet, 150 mg PO QAM #90 tabs 11/17/23 01/16/24 Rx extended release carvedilol 12.5 mg tablet 12.5 mg PO BID #180 tabs 01/06/24 01/16/24 Rx amlodipine 10 mg tablet 10 mg PO QAM 01/16/24 01/16/24 History benazepril 40 mg tablet 0 mg PO QAM 01/16/24 01/16/24 History chlorhexidine gluconate 0.12 % 1 ea PO AMPM 01/16/24 01/16/24 History mouthwash ibuprofen 800 mg tablet 800 mg PO Q6H 01/16/24 01/16/24 History paroxetine HCl 40 mg tablet 0 mg PO QAM 01/16/24 01/16/24 History rosuvastatin 40 mg tablet 0 mg PO DAILY 01/16/24 01/16/24 History tramadol 50 mg tablet 50 - 100 mg PO Q6H PRN Pain 01/16/24 01/16/24 History Patient History Medical History Antibiotic-induced myalgia Cough Fever Morbid obesity CAD (coronary artery disease) Anxiety Hypertension Hyperlipidemia Anxiety reaction Surgical History History of tympanostomy tube placement (~04/2019) History of ankle surgery History of cardiac cath (~07/2016) History of esophagogastroduodenoscopy (EGD) (~08/2016) History of colonoscopy History of splenectomy (~1988) History of tooth extraction H/O percutaneous transluminal coronary angioplasty Family History Mother Family history of diabetes mellitus Brother Coronary heart disease Father Hx of CABG Unknown Cardiac disorder Other No family history of bleeding disorder Social History (Updated 01/01/24 @ 11:28 by JHONATHAN Chino) Smoking Status: Never smoker Second Hand Exposure: No; Do You Dip or Chew Tobacco: No; Hx Alcohol Use: No Hx Substance Use: No Preferred Language: Occitan Communication Ability: Effective Tailor Helper Required: No Beliefs That Will Affect Care: None Current Living Situation: Family current occupational status: employed Feels Safe at Home: Yes Assistive Devices: None Exam (Neuro) Physical Exam: HEENT: normocephalic Neuro: Mental: intubated and sedated. no response to stimulation. CN:pupils fixed at 4 mm b/l and nonreactive to light b/l. absent corneal and VOR b/l. Motor: No abnormal movements, normal tone. Sens: no withdrawal to pain DTR: 1+ sym b/l, toes mute b/l Impression: 53 yo male in comatose state in setting of sepsis and extensive HOSPITAL NURSE infection. mri brain with extensive cortical changes and pt requiring pressors currently to maintain BP. Poor prognosis at this point based on exam and mri. Recommendations: empiric tx with keppra 1000mg IV bid with 1000mg loading dose now (told nurse). discussed case with family and ICU attending. family agree with transfer to tertiary [facility] with neurosurgery. pt also expressed in the past multiple times that he wants to go to [facility] if he is sick. continue antiviral and antibiotic and supportive care as now and plan for transfer. Chart reviewed I have spent more than 50% educating patient about potential diagnosis and neurological evaluation and coordinating care with patient's treatment team. Total time spent (including chart review and coordination of care): 60 min (this includes chart review). Results & Data Vital Signs (Past 12 Hours) Vital Signs Temp Pulse Pulse Resp BP BP Pulse Ox 01/16/24 14:00 36.4 C L 96 H 20 98 01/16/24 14:00 153/96 H 01/16/24 13:45 99/63 L 01/16/24 13:45 36.5 C 78 20 99 01/16/24 13:30 118/78 01/16/24 13:30 36.6 C 82 20 99 01/16/24 13:15 144/99 H 01/16/24 13:15 36.7 C 83 18 99 01/16/24 13:02 36.8 C 79 20 99 01/16/24 12:55 01/16/24 12:33 67 21 99 01/16/24 10:51 170/108 H 01/16/24 10:45 37.1 C 100 H 22 186/112 H 98 01/16/24 10:30 37.2 C 97 H 22 94 01/16/24 10:26 198/104 H 01/16/24 10:15 37.4 C 89 18 99 01/16/24 10:00 37.7 C H 93 H 16 99 01/16/24 10:00 212/126 H 01/16/24 09:49 82 15 212/132 H 99 01/16/24 09:45 37.8 C H 86 15 99 01/16/24 09:32 76 16 212/130 H 99 01/16/24 09:30 38.1 C H 73 17 99 01/16/24 09:15 38.1 C H 71 15 100 01/16/24 09:06 90 01/16/24 09:00 38.1 C H 83 14 98 01/16/24 08:57 234/140 H 01/16/24 08:57 38.1 C H 90 34 H 99 01/16/24 08:48 97 01/16/24 08:45 38.0 C H 88 29 H 98 01/16/24 08:30 38.0 C H 81 36 H 99 01/16/24 08:22 268/120 H 01/16/24 08:22 37.9 C H 77 25 H 98 01/16/24 08:19 37.9 C H 82 29 H 100 01/16/24 08:15 37.9 C H 88 29 H 99 01/16/24 08:10 80 01/16/24 08:00 37.4 C 83 29 H 97 01/16/24 07:57 37.2 C 01/16/24 07:55 182/105 H 01/16/24 07:55 36.7 C 85 29 H 99 01/16/24 07:50 179/105 H 01/16/24 07:50 85 27 H 99 01/16/24 07:45 183/108 H 01/16/24 07:45 83 25 H 98 01/16/24 07:40 180/99 H 01/16/24 07:40 84 26 H 97 01/16/24 07:38 83 32 H 98 01/16/24 07:16 78 25 H 182/97 H 97 O2 Del Method FiO2 01/16/24 14:00 01/16/24 14:00 01/16/24 13:45 01/16/24 13:45 01/16/24 13:30 01/16/24 13:30 01/16/24 13:15 01/16/24 13:15 01/16/24 13:02 01/16/24 12:55 40 01/16/24 12:33 40 01/16/24 10:51 01/16/24 10:45 Mechanical Vent 01/16/24 10:30 Mechanical Vent 01/16/24 10:26 01/16/24 10:15 Mechanical Vent 01/16/24 10:00 Room Air 01/16/24 10:00 01/16/24 09:49 Room Air 01/16/24 09:45 01/16/24 09:32 Room Air 01/16/24 09:30 01/16/24 09:15 01/16/24 09:06 01/16/24 09:00 01/16/24 08:57 01/16/24 08:57 01/16/24 08:48 Room Air 01/16/24 08:45 01/16/24 08:30 01/16/24 08:22 01/16/24 08:22 01/16/24 08:19 01/16/24 08:15 Room Air 01/16/24 08:10 01/16/24 08:00 01/16/24 07:57 01/16/24 07:55 01/16/24 07:55 01/16/24 07:50 01/16/24 07:50 Room Air 01/16/24 07:45 01/16/24 07:45 Room Air 01/16/24 07:40 01/16/24 07:40 01/16/24 07:38 01/16/24 07:16 Room Air PG Care Time/CCT Total # of Minutes Spent Total Time Spent with Patient: Total time spent is greater than 50% in coordination of care (as documented) at patient's floor/unit and/or counseling patient: Coding Level of Care Code 24790 IN/OBS CONSULT LVL 4,60M Diagnoses Sepsis, due to unspecified organism, unspecified whether acute organ dysfunction present A41.9 Sepsis type: sepsis due to unspecified organism Sepsis acute organ dysfunction status: unspecified (1) Sepsis Sepsis type: sepsis due to unspecified organism Sepsis acute organ dysfunction status: unspecified Qualified Code(s): A41.9 - Sepsis, unspecified organism
[2024-01-16] MEDS: levETIRAcetam 500 MG/5 ML VIAL IV STA (14:26)
[2024-01-16] MEDS ORDERED: levETIRAcetam IV 1,000 MG in 0.9 % SODIUM CHLORIDE 100 ML IV SCH (14:30)
[2024-01-16] MEDS ORDERED: STROKE PATIENT DISCHARGE STA (15:20)
--- NOTE | 2024-01-16 15:27 | Pharmacy Report ---
Pharmacy PK ABX Note - Date of Service January 16, 2024 - Assessment and Plan Assessment 53 year old M receiving VANCOMCYIN/MEROPENEM for treatment of MENINGITIS. MRI concerning for meningitis. Meropenem selected to also cover listeria given amoxicillin allergy. Patient currently intubated, was minimally responsive. Plan Vancomycin * Loading dose: 2750 mg IV x 1 * Maintenance dose: 1250 mg IV every 8 hours * Regimen is predicted to achieve target AUC/DIMA of 400-600 mg/L.hr for first 6 doses, may need reduced pending continuation * Random level ordered for 01/16 @ 0900 if patient remains at our facility. Pharmacy will continue to follow and will adjust dose/frequency as necessary. Thank you. Pharmacy has transitioned to AUC monitoring for vancomycin. AUC/DIMA is the preferred PK/PD target and is associated with decreased risk of nephrotoxicity compared to traditional trough targets.
--- NOTE | 2024-01-16 15:29 | Discharge Summary ---
Discharge Summary Date of Service January 16, 2024 Notes For Next Care Provider transferred to [facility] for neurosurgery services Admission HPI Per Admitting Provider Bandar is a 53M with a PMH of CAD, HTN, HLD, and asplenia who presents to the ER after being found down by his this morning. Last known well was 730pm last night. battleing with sinusitis/pharnygitis over the last two weeks. 3 different outpatient abx. reports maybe a complaint of headache yesterday but otherwise was feeling well. works in construction. Principal Dx & Hospital Course #1 = Principal Diagnosis (1) AMS (altered mental status): Found down by this monring, last known well 01/14 730pm. Dealing with sinusitis/pharyngitis for the last two weeks has been on 3 antibiotics. 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 Mild hydrocephalus - Intubated in the ER for airway protection - Neurology consult - recommend neurosurgery consults - transfer to tertiary care, may have blocked of 3rd ventricle from pus - given cefepime, flagyl, vancomycin and Meropenem (2) Hypertension: Hypertensive 200/100s on arrival received IV lopressor; Now hypotnsive requiring pressor (3) Encephalitis: as above (4) Meningitis: as above (5) Septic shock: as above (6) Rhabdomyolysis: as above, receiving IVFs Plan Dispo: critcally ill, transfer to [facility] for neurosurgery Discussed case with Dr. yeung, optimization consultant and Dr. Lundberg, Neurology Discharge Exam see exam from same DOS Updated Medication List Medication Instructions Recorded Confirmed Type aspirin 81 mg tablet,delayed 81 mg PO QAM 04/06/19 01/16/24 History release fexofenadine 180 mg tablet 180 mg PO QAM 04/06/19 01/16/24 History clopidogrel 75 mg tablet 75 mg PO DAILY #90 tabs 03/31/23 01/16/24 Rx hydrochlorothiazide 25 mg tablet See Rx Instructions .Route 06/25/23 01/16/24 Rx .COMPLEX #90 tabs nitroglycerin 0.4 mg sublingual 0.4 mg sublingual Q5M PRN Chest 08/19/23 01/16/24 Rx tablet Pain #25 tabs fluticasone propionate 50 2 spray intranasal DAILY #9.9 grams 09/18/23 01/16/24 Rx mcg/actuation nasal spray,suspension (Flonase Allergy Relief) bupropion HCl 150 mg 24 hr tablet, 150 mg PO QAM #90 tabs 11/17/23 01/16/24 Rx extended release carvedilol 12.5 mg tablet 12.5 mg PO BID #180 tabs 01/06/24 01/16/24 Rx amlodipine 10 mg tablet 10 mg PO QAM 01/16/24 01/16/24 History benazepril 40 mg tablet 0 mg PO QAM 01/16/24 01/16/24 History chlorhexidine gluconate 0.12 % 1 ea PO AMPM 01/16/24 01/16/24 History mouthwash ibuprofen 800 mg tablet 800 mg PO Q6H 01/16/24 01/16/24 History paroxetine HCl 40 mg tablet 0 mg PO QAM 01/16/24 01/16/24 History rosuvastatin 40 mg tablet 0 mg PO DAILY 01/16/24 01/16/24 History tramadol 50 mg tablet 50 - 100 mg PO Q6H PRN Pain 01/16/24 01/16/24 History Hospital Stay Data Consultations 01/16/24 09:13 ED Decision to Admit Stat 01/16/24 12:55 Consult Controller Operations And Hr Manager Routine Consult Neurology Routine 01/16/24 13:34 Consult Infectious Diseases Routine Diagnostic Imagining Performed Head CT 01/16/24 07:03 CR Exam(s): CT HEAD Without Contrast EXAM: CT Head Without Intravenous Contrast CLINICAL HISTORY: Reason for exam: neuro deficit, acute stroke suspected. TECHNIQUE: Axial computed tomography images of the head/brain without intravenous contrast. CTDI is 53.34 mGy and DLP is 1498.69 mGy-cm. Automated exposure control was utilized for the study. A dose lowering technique was utilized adhering to the principles of ALARA. COMPARISON: No relevant prior studies available. FINDINGS: Brain: Unremarkable. No hemorrhage. No significant white matter disease. No edema. Ventricles: Unremarkable. No ventriculomegaly. Bones/joints: Unremarkable. No acute fracture. Soft tissues: Unremarkable. Sinuses: Unremarkable as visualized. No acute sinusitis. Mastoid air cells: Unremarkable as visualized. No mastoid effusion. IMPRESSION: No acute intracranial abnormality Communications: Call Doctor Stroke Electronically signed by: Hector Morton MD 01/16/24 07:41 AM Head CTA 01/16/24 07:03 CR Exam(s): CTA HEAD With Contrast IV Amt: 115 mls optiray 320 EXAM: CT Angiography Head With Intravenous Contrast CLINICAL HISTORY: Reason for exam: neuro deficit, acute stroke suspected. TECHNIQUE: Axial computed tomographic angiography images of the head with intravenous contrast. CTDI is 53.34 mGy and DLP is 1498.69 mGy-cm. Automated exposure control was utilized for the study. A dose lowering technique was utilized adhering to the principles of ALARA. MIP reconstructed images were created and reviewed. CONTRAST: Patient received 115 mls optiray 320 of IV contrast COMPARISON: No relevant prior studies available. FINDINGS: Right internal carotid artery: No acute findings. Intracranial segment is patent with no significant stenosis. No aneurysm. Right anterior cerebral artery: Unremarkable. No occlusion or significant stenosis. No aneurysm. Right middle cerebral artery: Unremarkable. No occlusion or significant stenosis. No aneurysm. Right posterior cerebral artery: Unremarkable. No occlusion or significant stenosis. No aneurysm. Right vertebral artery: Unremarkable as visualized. Left internal carotid artery: No acute findings. Intracranial segment is patent with no significant stenosis. No aneurysm. Left anterior cerebral artery: Unremarkable. No occlusion or significant stenosis. No aneurysm. Left middle cerebral artery: Unremarkable. No occlusion or significant stenosis. No aneurysm. Left posterior cerebral artery: Unremarkable. No occlusion or significant stenosis. No aneurysm. Left vertebral artery: Unremarkable as visualized. Basilar artery: Unremarkable. No occlusion or significant stenosis. No aneurysm. IMPRESSION: Normal head CTA. Communications: Call Doctor Stroke Electronically signed by: Hector Morton MD 01/16/24 07:43 AM Neck CTA 01/16/24 07:03 CR Exam(s): CTA NECK With Contrast IV Amt: 115 mls optiray 320 EXAM: CT Angiography Neck With Intravenous Contrast CLINICAL HISTORY: Reason for exam: neuro deficit, acute stroke suspected. TECHNIQUE: Routine carotid CT angiography protocol was performed with intravenous contrast. NASCET criteria using the distal ICAs for comparison were used for evaluation of stenoses. CTDI is 53.34 mGy and DLP is 1498.69 mGy-cm. Automated exposure control was utilized for the study. A dose lowering technique was utilized adhering to the principles of ALARA. MIP reconstructed images were created and reviewed. CONTRAST: Patient received 115 mls optiray 320 of IV contrast COMPARISON: None. FINDINGS: VASCULATURE: Right common carotid artery: Unremarkable. No occlusion or significant stenosis. No dissection. Right internal carotid artery: Unremarkable. Extracranial segment is patent with no occlusion or significant stenosis. No dissection. Right external carotid artery: Unremarkable. No occlusion. Right vertebral artery: Unremarkable. No occlusion or significant stenosis. No dissection. Left common carotid artery: Unremarkable. No occlusion or significant stenosis. No dissection. Left internal carotid artery: Unremarkable. Extracranial segment is patent with no occlusion or significant stenosis. No dissection. Left external carotid artery: Unremarkable. No occlusion. Left vertebral artery: Unremarkable. No occlusion or significant stenosis. No dissection. NECK: Bones/joints: Unremarkable. No acute fracture. Soft tissues: Unremarkable. Lung apices: Clear. CAROTID STENOSIS REFERENCE USING NASCET CRITERIA: % ICA stenosis = (1 - narrowest ICA diameter/diameter of distal cervical ICA) x 100. Mild - <50% stenosis. Moderate - 50-69% stenosis. Severe - 70-94% stenosis. Near occlusion - 95-99% stenosis. Occluded - 100% stenosis. IMPRESSION: Negative CTA neck. Communications: Call Doctor Stroke Electronically signed by: Hector Morton MD 01/16/24 07:44 AM Chest X-Ray 01/16/24 07:59 XR chest 1V portable CLINICAL HISTORY: Altered mental status. COMPARISON STUDY: Chest CT July 12, 2016. Chest radiograph July 15, 2016. FINDINGS: Lung volumes are mildly diminished. This is unchanged. There is no pneumothorax or pleural effusion. Stable cardiomegaly. There is pulmonary vascular congestion without overt pulmonary edema. There are bibasilar opacities, greater on the left. IMPRESSION: 1. Cardiomegaly with pulmonary vascular congestion. 2. Bibasilar opacities, greater on the left. The findings could reflect atele ctasis or consolidation. ACT 112: Negative or not required by law. Electronically signed by: Zach Moy M.D. 01/16/2024 8:14 AM Brain MRI 01/16/24 09:53 MRI OF THE BRAIN WITHOUT AND WITH IV CONTRAST CLINICAL HISTORY: stroke vs encephalitis COMPARISON STUDY: Head CT and CTA of the head January 16, 2024. TECHNIQUE: Utilizing a 1.5 Jennifer magnet and dedicated coil, multiplanar, multiecho imaging of the brain was performed pre and postcontrast administration. IV administration of 14.5 mL of Gadavist contrast was uneventful. FINDINGS: The diffusion-weighted sequences demonstrate extensive cortical hyperintensity, greater within the right cerebral hemisphere. Correlation with the ADC map is difficult on this exam however portions of the hyperintense foci on the diffusion-weighted sequence appear hypointense on the ADC map. There may be mild associated cortical edema. There is no significant mass effect. Mild ventricular dilatation is noted when compared to earlier head CT of July 15, 2016. Of note, there is a small amount of layering material within the occipital horns of the lateral ventricles. In addition, there are fluid fluid levels within the extra-axial CSF space between the cerebellar hemispheres. There is slight asymmetric dural thickening and enhancement overlying the right cerebral hemisphere. There is no evidence for herniation. No intracranial masses are identified. There is no leptomeningeal enhancement. The superior sagittal sinus appears somewhat diminutive but appears patent on postcontrast sequences. Calvarial signal is normal. There is fluid within the right middle ear and mastoid air cells. This was also shown on earlier CT of September 23, 2019. No orbital abnormality is identified. Secretions within the nasopharynx likely related to intubation. IMPRESSION: 1. Extensive cortical hyperintensity on the diffusion-weighted sequences, greater within the right cerebral hemisphere. Mild asymmetric dural thickening and enhancement overlying the right cerebral hemisphere without leptomeningeal enhancement. Small amount of layering material within the occipital horns of the lateral ventricles and within the extra-axial spaces of the posterior fossa. Overall, the imaging findings are highly suggestive of an infectious process with meningitis, cerebritis and involvement of the ventricular system/CSF. Associated mild hydrocephalus. 2. No evidence for acute hemorrhage. Mild mass effect. No midline shift. No evidence for herniation. 3. Fluid within the right middle ear and mastoid air cells, shown on earlier CT of September 23, 2019. ACT 112: Negative or not required by law. Electronically signed by: Zach Moy M.D. 01/16/2024 2:01 PM Chest X-Ray 01/16/24 10:17 SUPINE PORTABLE AP CHEST RADIOGRAPH CLINICAL HISTORY: intubation COMPARISON STUDY: Chest radiograph performed earlier today. FINDINGS: Tip of endotracheal tube is 3.6 cm above the korin. There is no pneumothorax or pleural effusion on supine exam. Allowing for supine technique, cardiomediastinal silhouette is stable. There may be pulmonary vascular congestion. Mild bibasilar opacities are again noted. IMPRESSION: 1. Satisfactory positioning of the endotracheal tube. 2. Persistent bibasilar opacities. 3. Stable cardiomegaly with pulmonary vascular congestion. ACT 112: Negative or not required by law. Electronically signed by: Zach Moy M.D. 01/16/2024 10:45 AM Pending Results Patient Have Any Pending Studies at Discharge: Yes (Blood cultures) Discharge Instructions Given to Patient (Per Discharging Provider) Transferred to [facility] Total Time Total Time Spent Total Time Spent (In Minutes): total Time spend day of discharge 65+ minutes including direct patient care, medication reconciliation, documentation, review of labs and images, discussion with consultants and coordination of care. Supervising Physician Co-Signing Physician Notes PA Supervision Note: I personally saw and examined the patient. I verified all tomlinson points and agree with STANTON Silver with the following exceptions and/or additions: S-This pt is a 53 yo male with history noted as above, here with 2 weeks of sinus congestion, ear pain, URI symptoms, treated with outpt courses of azithromycin and then Levaquin (due to PCN and doxycycline allergies) who also had a dental procedure with a tooth extraction a few days prior, who presents after being found down for unknown length of time at home. Last known well was 12 hrs prior by . Was initially awake and nonverbal, with left side flaccid as per ED physician. By the time I came to assess him, he was obtunded, having periods of apnea, was unresponsive to sternal rub, significantly hypertensive, and febrile. I discussed his care with the Controller Operations And Hr Manager and then asked the ED physician to emergently intubate the patient in the ED. He was given broad spectrum antibiotics to cover for meningitis, PNA, given ASA 300mg CA x 1 in case of acute CVA (after had negative head CT and CTA H/N), IVFs. MRI brain performed after intubation and showed cerebritis, encephalitis, IV purulence, and hydrocephalus I supervised STANTON Silver in making arrangements for transfer to [facility] after discussion s with Neurology and NS O- Vitals reviewed Gen:obtunded, cheynne barron respirations, eyes open, morbidly obese CV: [RRR no mgr nl S1S2] Pulm: [CTAB no wcr] Abd: [+BS soft NT ND no masses or hernias] Ext: [no edema, 2+ DP pulses] Skin: [no rashes, warm/dry] Neuro: left side flaccid Labs, Rads, and ECG reviewed A/P-53 yo male here with left hemiparesis from cerebritis/encephalitis/meningitis, with septic shock now with VDRF due to being unable to maintain airway Continue broad spectrum abx, IVFs, pressors lines being placed by ICU Transfer urgently for NS eval at [facility] Coding Level of Care Code INP/OBS EV SAME DAY LV 3,85MIN Diagnoses AMS (altered mental status) R41.82 Hypertension I10 Encephalitis G04.90 Meningitis G03.9 Septic shock A41.9; R65.21 Rhabdomyolysis M62.82
--- NOTE | 2024-01-16 15:50 | Procedure Note ---
Procedure Note Date of Service January 16, 2024 Note Procedure: Inserting ultrasound-guided central lockstitch waistline joiner: Dr. Thong Juan Indication: Hypotension Consent: Emergent as well as verbal consent obtained from patient's Anesthesia: 1% lidocaine without epinephrine local. Procedure: Consent was verified and timeout performed. Appropriate imaging studies were reviewed prior to the procedure. Under aseptic and sterile condition, right IJ vein was accessed under direct ultrasound guidance. Guidewire was confirmed to be within the lumen of vein with the help of ultrasound. Catheter was introduced via Seldinger technique. Guide a wire was removed. Good non-pulsatile blood flow was appreciated from all the ports. The catheter was placed at [address] in place. BioPatch was applied to the catheter and a sterile Tegaderm dressing was applied over the catheter with careful attention to sterility. Lung sliding was appreciated post procedure with the help ultrasound. Chest x-ray to follow Patient tolerated the procedure well. Blood loss: Less than 2 cc Complications: None Coding CPT Codes Tubes, Drains, and Vasc Access - Tubes, Drains, and Vasc Access: [id number] Place catheter in vein superior or inferior vena cava ([id number]) Tubes, Drains, and Vasc Access - Tubes, Drains, and Vasc Access: [id number] Ultrasound Guidance For Vascular ([id number]) [facility] [place] Procedure Codes (Charges) Tubes, Drains, and Vasc Access Procedure 1: Tubes, Drains, and Vasc Access: [id number] Place catheter in vein superior or inferior vena cava Procedure 2: Tubes, Drains, and Vasc Access: [id number] Ultrasound Guidance For Vascular
--- NOTE | 2024-01-16 15:51 | Procedure Note ---
Procedure Note Date of Service January 16, 2024 Note ARTERIAL LINE PROCEDURE NOTE: Procedure: Arterial Line Placement Attending: Dr. Thong Juan MD Indication: Monitoring on Pressors Anesthesia: None Verbal consent was obtained from patient's . Indication, risks, and benefits were explained at length. A time-out was completed verifying correct patient, procedure, site, positioning, and implant(s) or special equipment if applicable. Allens test was performed to ensure adequate perfusion. Patients left wrist was prepped and draped in the usual sterile fashion. Ultrasound guidance was used to aid needle placement. A 20g Arrow arterial line was introduced into the left radial artery. Catheter was threaded, and the needle was removed with appropriate pulsatile blood return. Good waveform was observed on the monitor. The patient tolerated the procedure well. Confirmation of placement with ultrasound. Images saved to medical record. Complications: None Blood Loss: Less than 2 cc Coding CPT Codes Tubes, Drains, and Vasc Access - Tubes, Drains, and Vasc Access: [id number] Arterial Cath/Cannulation Sampling/Monitoring/Transfusion ([id number]) Tubes, Drains, and Vasc Access - Tubes, Drains, and Vasc Access: [id number] Ultrasound Guidance For Vascular ([id number]) [facility] [place] Procedure Codes (Charges) Tubes, Drains, and Vasc Access Procedure 1: Tubes, Drains, and Vasc Access: [id number] Arterial Cath/Cannulation Sampling/Monitoring/Transfusion Procedure 2: Tubes, Drains, and Vasc Access: [id number] Ultrasound Guidance For Vascular
[2024-01-16 15:54] LABS: iSTAT Art Bld Gas pCO2 Correct 36 mmHg (35-46); iSTAT Art Bld Gas pH Corrected 7.369 (7.35-7.45); iSTAT Arterial Blood Gas HCO3 21 meg/L (19-24); iSTAT Arterial Blood Gas pCO2 36 mmHg (35-46); iSTAT Arterial Blood Gas pH 7.37 (7.35-7.45); iSTAT Arterial Blood Gas pO2 83 mmHg (80-95); iSTAT Arterial Blood Gas pO2 C 83; iSTAT Carbon Dioxide 22 mmol/L (24-31); iSTAT FiO2 40 %; iSTAT Hematocrit 45 % (42-52); iSTAT Hemoglobin 15.3 g/dl (14.0-18.0); iSTAT Potassium 3.1 mmol/L (3.3-5.0); iSTAT Site Art Line; iSTAT Sodium 138 mmol/L (135-144)
--- NOTE | 2024-01-16 15:59 | XRay Report ---
XR chest 1V portable CLINICAL HISTORY: central line placement COMPARISON STUDY: Chest radiograph January 16, 2024 at 10:22 AM. FINDINGS: Tip of endotracheal tube is approximately 4.4 cm above the korin. Tip of right internal ju gular central line projects over the distal SVC. There is no pneumothorax. Tip of nasogastric tube is below the lower aspect of this image but at least within the body of the stomach. Low lung volumes a re unchanged. There is no evidence for pulmonary edema. Left basilar opacity persists. IMPRESSION: 1. No pneumothorax following placement of a right internal jugular central line. 2. Satisfactory positioning of the endotracheal and nasogastric tubes. 3. Persistent left basilar opacity. ACT 112: Negative or not required by law. Electronically signed by: Zach Moy M.D. 01/16/2024 3:58 PM
[2024-01-16] MEDS ORDERED: levETIRAcetam 500 MG/5 ML VIAL IV ONE (16:25)
[2024-01-16] MEDS ORDERED: SUCCINYLCHOLINE CHLORIDE 20 MG/ML 10 ML VIAL IV ONE (16:57)
[2024-01-16] MEDS ORDERED: ETOMIDATE 2 MG/ML 20 ML VIAL IV ONE (16:57)
--- NOTE | 2024-01-16 17:55 | Communication Note ---
Date of Service: January 16, 2024 Critical care addendum: Patient's MRI result was back which shows significant oh cortical hyperintensity with right cerebral hemisphere enhancement more than the left. There was also probable pus within the ventricles. There was also associated mild hydrocephalus. This was discussed with neurology on-call who recommended neurosurgery and transfer to a tertiary center. I personally discussed the case with neurology as well. Who stated that the prognosis might be poor. I discussed this with patient's as well as daughters at bedside. And the preferred Ma[facility]. Patient's blood pressure was very labile. Initially he came in with systolic blood pressures in the 200s but when he came to the ICU it was in the 50s. He responded well to Levophed alone initially. My goal was to keep MAP around 80 given the initial maps in the 100s. He still needed additional vasopressin later on. I got consent for central line as well as A-line before the transfer. Patient will be transported through [facility]. There critical nature of patient's condition was explained in depth to the family All questions and queries were answered in the best possible way I have personally spent additional 32 minutes of critical care time in the direct management of this patient. This is a life/limb threatening event. This includes time spent evaluating patie nt, direct bedside care, chart review, placing orders, interpretation of diagnostic studies, discussion with consultants, patient, and family members, as well as other required patient management activities. This time is exclusive of all separately billable procedures, and teaching time and separate from and in addition to any other critical care service time. Please note the above document was generated using voice recognition software. It may contain grammatical, syntax or spelling errors. Coding Level of Care Code 15797 CRITICAL CARE EA ADD 30M
[2024-01-16] MEDS ORDERED: VANCOMYCIN HCL 1,250 MG in SODIUM CHLORIDE 0.9% 250 ML IV SCH (18:00)
[2024-01-16 19:32] LABS: A calco-baum cmplx NotReported Not Detected (NotDetected); Bact fragilis Not Reported Not Detected (NotDetected); Blood Culture Id Panel See PCR Comment (NotDetected); C auris Not Reported Not Detected (NotDetected); Calbicans Not Reported Not Detected (NotDetected); Candida glabrata Not Reported Not Detected (NotDetected); Candida krusei Not Reported Not Detected (NotDetected); Cneoformans/gatti Not Reported Not Detected (NotDetected); Cparapsilosis Not Reported Not Detected (NotDetected); E cloacae compx Not Reported Not Detected (NotDetected); Efaecalis Not Reported Not Detected (NotDetected); Efaecium Not Reported Not Detected (NotDetected); Enterobacterales Not Reported Not Detected (NotDetected); Escherichia coli Not Reported Not Detected (NotDetected); H influenzae Not Reported Not Detected (NotDetected); K aerogenes Not Reported Not Detected (NotDetected); Koxytoca Not Reported Not Detected (NotDetected); Kpneumoniae grp Not Reported Not Detected (NotDetected); Lmonocyt Not Reported Not Detected (NotDetected); N meningitidis Not Reported Not Detected (NotDetected); P aeruginosa Not Reported Not Detected (NotDetected); Proteus spp Not Reported Not Detected (NotDetected); Salmonella spp Not Reported Not Detected (NotDetected); Smarcescens Not Reported Not Detected (NotDetected); Staph lugdunensis Not Reported Not Detected (NotDetected); Staph spp. Not Reported Not Detected (NotDetected); Staphaureus Not Reported Not Detected (NotDetected); Staphepi Not Reported Not Detected (NotDetected); Stenmaltophilia Not Reported Not Detected (NotDetected); Strep agal(GrpB) Not Reported Not Detected (NotDetected); Strep pneum Not Reported Not Detected (NotDetected); Strep pyog (GrpA) Not Reported DETECTED (NotDetected); Strep spp Not Reported DETECTED (NotDetected); Streptococcus spp DETECTED (NotDetected)
[2024-01-16 20:03] LABS: Streptococcus pyogenes (GrpA) DETECTED (NotDetected)
[2024-01-17 00:24] LABS: iSTAT Creatinine 0.9 mg/dl (0.6-1.3); iSTAT Ionized Calcium 0.98 mmol/l (1.12-1.32)
[2024-01-17] MEDS ORDERED: VANCOMYCIN LEVEL ONE (09:00)
--- NOTE | 2024-01-17 09:22 | XCELERA ---
[id number]
[2024-01-21 15:58] LABS: MDA negative; MDEA negative; MDMA (Ecstasy) Urine, Confirm negative
== END 2024-01-16 16:58 | disposition short-term general hospital (02) | DRG 871 ==
LOC: SUATTDRO → ED 07:04 → 1E 10:02